=== PATIENT | female | born 1955 | race Caucasian/White ===

== ENCOUNTER 2018-03-17 15:46 | Inpatient (IN) | payer OTHER ==
[~2018-03-17 15:46] MED LIST: ISOVUE-370 76%-LOCM 1 ML ONE
--- NOTE | 2018-03-17 17:40 | RAD ---
CHEST ONE VIEW: 03/17/18 HISTORY: Pain COMPARISON: None. FINDINGS: Normal cardiac silhouette. Slightly diminished lung volumes due to poor inspiratory effort. No consol idation or mass. No pneumothorax or osseous abnormalities. IMPRESSION: No acute cardiopulmonary process. POS: DANGELO
[2018-03-17 17:43] LABS: Bilirubin Negative (Negative); Blood, Urine Negative (Negative); Glucose, Urine (Dipstick) >=1000 mg/dL (Negative); Leukocyte Trace (Negative); Nitrite Positive (Negative); Protein, Urine (Dipstick) Negative (Neg-Trace); Urobilinogen 0.2 mg/dL (0.2-1.0); pH, Urine 5.5 (5.0-9.0)
[2018-03-17 17:46] LABS: Clarity Clear (Clear)
[2018-03-17 17:49] LABS: Bacteria/HPF 3+ HPF (None Seen); Hyaline Casts/LPF 4-6 HYALINE CAST LPF (0-3 Hyaline); Pathc Cast-AUWi Flag 1.01 (0-2.49); RBC/HPF 0-3 HPF (0-3); Squamous Epithelial 0-3 HPF (0-3)
[2018-03-17 17:51] LABS: ALT (SGPT) 32 U/L (8-55); AST (SGOT) 26 U/L (5-34); Albumin 4.4 g/dL (3.4-4.8); Alkaline Phosphatase 97 U/L (40-150); Anion Gap 15 mmol/L (10-20); BUN (Urea Nitrogen) 12 mg/dL (9.8-20.1); Bilirubin, Total 0.4 mg/dL (0.2-1.2); Calc. Creatinine Clearance 0 mL/min (70-130); Calcium 10.4 mg/dL (7.8-10.44); Carbon Dioxide 21 mmol/L (23-31); Chloride 98 mmol/L (98-107); Estimated GFR-MDRD 69; Globulin 3.8 g/dL (2.4-3.5); Glucose 342 mg/dL (80-115); Magnesium 1.6 mg/dL (1.6-2.6); Potassium 4.3 mmol/L (3.5-5.1); Protein, Total 8.2 g/dL (6.0-8.3); Sodium 130 mmol/L (136-145)
[2018-03-17 17:55] LABS: CKMB 1.2 ng/mL (0-6.6)
[2018-03-17 17:58] LABS: Crystals/HPF None Seen HPF (Negative)
[2018-03-17 18:12] LABS: Troponin I Less than 0.010 ng/mL (< 0.028)
--- NOTE | 2018-03-17 19:39 | CT ---
CT ANGIOGRAM OF THE CHEST: 03/17/18 HISTORY: Chest pain. Evaluate for thrombus. COMPARISON: None. TECHNIQUE: CT angiogram of the chest is performed in the axial plane. Three dimensional reformatted images are s ubmitted for interpretation. FINDINGS: No mediastinal mass, lymphadenopathy or hematoma. Heart size is within normal limits. No significant pericardial fluid. The thoracic aorta and upper abdominal aorta demonstrate atherosclerosis. No peria ortic fat stranding. Coronary artery calcifications identified. Visualized solid organs are unremarkable. There is evidence of hepatomegaly. Dependent atelectatic change in the lung parenchyma. No consolidation or masses. No pleural effusion. No pneumothorax. Trachea and central bronchi are patent. No lytic or blastic lesions in the osseous structures. Adequate contrast opacification in the pulmonary arterial system to the level of the segm ental arteries. No filling defect to suggest thromboembolism. IMPRESSION: No evidence of pulmonary artery embolism to the level of the segmental arteries. POS: BASIM
[2018-03-17] MEDS ORDERED: Nicotine 21 MG PATCH TOP SCH (21:00)
--- NOTE | 2018-03-17 21:16 | ULT ---
LEFT UPPER EXTREMITY ARTERIAL ULTRASOUND WITH DOPPLER: 03/17/18 HISTORY: Cool left upper extremity. COMPARISON: None. TECHNIQUE: Finney scale, color flow, doppler imaging, with spectral waveform analysis performed in the left upper extremity arterial system. FINDINGS: There is monophasic flow in the left subclavian artery, left axillary artery, left brachial artery, l eft radial artery and left ulnar artery. IMPRESSION: Monophasic flow throughout the left upper extremity arterial system. POS: DANGELO
[2018-03-17 23:08] LABS: Troponin I Less than 0.010 ng/mL (< 0.028)
[2018-03-18 00:50] VITALS: BMI 33.1
[2018-03-18] MEDS ORDERED: Ondansetron ODT 4 MG TAB SL PRN (01:00)
[2018-03-18] MEDS ORDERED: Acetaminophen 325 MG TAB PO PRN ×2 (01:00→02:19)
[2018-03-18] MEDS ORDERED: Albuterol Sulfate 2.5 mg/3 ml Neb NEB PRN (01:00)
[2018-03-18] MEDS ORDERED: Ondansetron HCl/PF 4 MG/2 ML Vial IVP PRN ×2 (01:00→02:19)
--- NOTE | 2018-03-18 01:47 | HP ---
PRIMARY CARE PHYSICIAN: Imani Abbtot MD DATE OF SERVICE: 03/17/2018 This patient was seen in the emergency room before midnight. HISTORY OF PRESENT ILLNESS: A 62-year-old female who has ongoing tobacco abuse disorder; diabetes, t ype 2; hypertension; dyslipidemia, who had regular followup visit with primary care physician where p atient was found with hyperglycemia. The patient was feeling that she was not able to record blood p ressure reading at home through the left upper extremity and that is why she was worried about. Esmer ent's primary care physician advised her to go to the emergency room for evaluation. She was experie ncing intermittent chest discomfort associated with shortness of breath. The patient is a heavy smok er. Patient's is present at bedside who reports that she has underlying history of COPD, but she is not using a nebulizer treatment as much as needed. The patient denies any discoloration in t he left upper extremities. She denies any left upper extremity pain. Patient was experiencing incre asing shortness of breath, which she attributes to her COPD. She denies any polyuria, polydipsia. S he denies any weight loss. She denies any recent weight gain. She denies any calf tenderness. She denies any dizziness or syncope. She denies any fever or chills. She denies any UTI symptoms, thoug h urinalysis in the emergency room was consistent with UTI. She denies any fever. She was tachycard ic in the emergency room. In the emergency room, the patient had CT angiography which was negative for pulmonary embolism. She was saturating normal on room air. She had arterial Doppler in left upper extremity which was also unremarkable. The patient is being admitted to telemetry floor for further evaluation. ALLERGIES: No known drug allergy. CURRENT HOME MEDICATIONS: Cymbalta 100 mg p.o. daily, Crestor 10 mg p.o. at bedtime, lisinopril 10 m g p.o. daily, metformin 750 mg p.o. daily, trazodone 100 mg p.o. at bedtime. REVIEW OF SYSTEMS: Constitutional: Weight loss or gain, ability to conduct usual activities. Skin: Rash, itching. Eyes: Double vision, pain. ENT/Mouth: Nose bleeding, neck stiffness, pain, tende rness. Cardiovascular: Palpitations, dyspnea on exertion, orthopnea. Respiratory: Shortness of br eath, wheezing, cough, hemoptysis, fever or night sweats. Gastrointestinal: Poor appetite, abdomina l pain, heartburn, nausea, vomiting, constipation, or diarrhea. Genitourinary: Urgency, frequency, dysuria, nocturia. Musculoskeletal: Pain, swelling. Neurologic/Psychiatric: Anxiety, depression. Allergy/Immunologic: Skin rash, bleeding tendency. Please see my HPI for pertinent positive and ne gative. All other review of systems reviewed and negative except as mentioned in the HPI. PAST MEDICAL HISTORY: Diabetes type 2, hypertension, dyslipidemia, COPD, tobacco abuse disorder, his tory of skin cancer on back. PAST SURGICAL HISTORY: Right knee surgery, skin cancer on the back was removed, cholecystectomy, hys terectomy, right MCL repair. PAST PSYCHIATRIC HISTORY: Anxiety and depression. SOCIAL HISTORY: Patient is . She smokes about 1-1/2 pack per day. She denies any alcohol ab use. She denies any other illicit drug abuse. FAMILY HISTORY: No strong family history of premature coronary artery disease, stroke, or cancer. EMERGENCY ROOM COURSE: Patient is given nicotine patch, aspirin 324 mg, Rocephin 1 gram, nitroglycer in 0.4 mg sublingual and IV fluid 1 liter. PHYSICAL EXAMINATION: VITAL SIGNS: On arrival, blood pressure 110/60, pulse 125, respiratory rate 30, temperature 98.5, sa turation 90% on room air, weight 82.1 kilograms. GENERAL: Patient is currently alert, awake, in no obvious acute distress. HEAD: Normocephalic, atraumatic. EYES: Pupils round, reactive to light. Extraocular muscle intact. ENT: Oropharynx within normal limits. Moist mucous membrane. No oral lesion, no pharyngeal erythem a, no exudate. NECK: Supple. No JVD, no thyromegaly, no carotid bruit. LUNGS: Bilateral end expiratory wheezing heard. No rhonchi, no wheezing, no rales, no accessory mus cles of respiration in use. CARDIAC: S1, S2 regular, tachycardia. No murmur elicited, no gallop, no rub. ABDOMEN: Soft, bowel sounds present, nontender, nondistended. No organomegaly, no mass, no suprapub ic tenderness. BACK: Unremarkable. No CVA tenderness. EXTREMITIES: Upper extremity: Passive movement of all joints are normal. Lower extremities: No ed dariel. Good peripheral pulsation. Left upper extremity: Patient does have feeble radial pulsation. There is normal skin color and normal capillary filling on left upper extremity. SKIN: No skin rash. HEMATOLOGICAL: No lymphadenopathy. PSYCHIATRIC: Normal affect. SIGNIFICANT LABORATORY AND DIAGNOSTIC DATA: EKG showing sinus tachycardia, premature ventricular com plexes. Chest x-ray based on my review, no acute cardiopulmonary process. CT angiography negative f or pulmonary embolism. Upper extremity ultrasound was showing monophasic flow throughout the left up per extremity. BMP: Sodium 130, potassium 4.3, chloride 98, carbon dioxide 21, BUN 12, creatinine 0 .83, glucose 342, calcium 10.4, and magnesium 1.6. LFT: AST 26, ALT 32, alkaline phosphatase 97, al bumin 4.4. BNP 24.7. Cardiac enzymes negative x2. Urinalysis suggestive of urinary tract infection . ASSESSMENT AND PLAN: 1. Chest pain/dyspnea rule out acute coronary syndrome. At this point, the patient is tachycardic, relatively hypotensive and hypoxic. CT angio is negative for pulmonary embolism. The patient will b e given IV fluid and will perform pharmacological stress test tomorrow morning for diagnostic reason to rule out underlying coronary artery disease. As this patient has several risk factors for coronar y artery disease. 2. Hyponatremia. Patient will be given IV fluid. This sodium is may be pseudohyponatremia from hyp erglycemia. We will repeat BMP tomorrow. 3. Hyperglycemia associated with diabetes type 2. We will continue with insulin as per sliding scal e per protocol. Diabetic diet will be given. We will continue to hold metformin because of contrast given with a CT angio. We will check hemoglobin A1c. We will monitor Accu-Chek every 4 hourly. 4. Urinary tract infection. We will send urine culture and start Rocephin 1 gram q.24 hours. Upon discharge, we will consider changing to p.o. ciprofloxacin. 5. Tobacco abuse disorder. Smoking cessation counseling given. Healthy lifestyle measures discusse d with the patient. We will offer nicotine patch if needed. 6. Dyslipidemia. Check lipid profile tomorrow for a stratification and continue Crestor 10 mg p.o. at bedtime. 7. Hypertension. If blood pressure permits, then we will give her lisinopril 10 mg p.o. daily. 8. Anxiety and depression. Continue Cymbalta as per home dosage as well as trazodone as per her colt e dosage. 9. Obesity. Dietary education given, weight loss education given. 10. Chronic obstructive pulmonary disease with mild exacerbation. DuoNeb therapy will be given ever y 6 hourly. 11. Inability to record blood pressure to left arm as well as feeble pulse and left radial, etiology uncertain. Arterial Doppler is unremarkable. Patient does not have any signs of vascular insuffici ency clinically at this point. 12. Deep venous thrombosis prophylaxis not needed because we are expecting discharge in 24 hours. 13. Gastrointestinal prophylaxis, Pepcid 20 mg p.o. b.i.d. 14. Code status: The patient is FULL CODE. Patient's is surrogate decision maker. Disposition plan based on clinical course and above-mentioned investigation result.
[2018-03-18 01:54] LABS: Troponin I Less than 0.010 ng/mL (< 0.028)
[2018-03-18] MEDS ORDERED: Nitroglycerin 0.4 MG TAB (25 Tab Bottle) PO PRN (02:19)
[2018-03-18] MEDS ORDERED: Zolpidem Tartrate 5 MG TAB PO PRN (02:19)
[2018-03-18] MEDS ORDERED: HYDROcodone/Acetaminophen 5/325 mg Tablet PO PRN (02:19)
[2018-03-18] MEDS ORDERED: Dextrose 5% in Water 1,000 ML IV PRN (02:19)
[2018-03-18] MEDS ORDERED: Mag-Al 1200 mg/1200 mg/30 ML UDCUP PO PRN (02:19)
[2018-03-18] MEDS ORDERED: Dextrose 50% Abboject 50 ML SYRINGE SLOW IVP PRN (02:19)
[2018-03-18] MEDS ORDERED: Milk Of Magnesia 30 ML UDCUP PO PRN (02:19)
[2018-03-18] MEDS ORDERED: Ondansetron ODT 4 MG TAB PO PRN (02:19)
[2018-03-18] MEDS ORDERED: Senokot 8.6 MG TAB PO PRN (02:19)
[2018-03-18] MEDS: cefTRIAXone\\ROCEPHIN 1 GM in Sodium Chloride 0.9% 100 ML IVPB SCH (03:22)
[2018-03-18] MEDS: Sodium Chloride 0.9% 1,000 ML IV SCH ×2 (03:55→18:42)
[2018-03-18] MEDS: Nitroglycerin 2% Ointment 1 INCH/1 GM Packet TOP SCH ×3 (04:05→20:43)
[2018-03-18 05:02] LABS: #Basophils 0.1 thou/uL (0.0-0.2); #Eosinphils 0.2 thou/uL (0.0-0.7); #Lymphocytes 2.6 thou/uL (1.20-3.40); #Monocytes 0.5 thou/uL (0.11-0.59); #Neutrophils 5.7 thou/uL (1.40-6.50); %Basophils 0.6 % (0.0-1.0); %Eosinophils 2.2 % (0.0-10.0); %Lymphocytes 28.5 % (21.0-51.0); %Monocytes 5.8 % (0.0-10.0); %Neutrophils 62.9 % (42.0-75.0); Hemoglobin 14.3 g/dL (12.0-16.0); Mean Corpuscular HGB CONC 34.5 g/dL (32.0-36.0); Mean Corpuscular Hemoglobin 34.3 pg (27.0-31.0); Mean Corpuscular Volume 99.3 fl (81.0-99.0); Mean Platelet Volume 7.8 fL (7.4-10.4); Platelet Count 161 thou/uL (130-400); Red Blood Cell (RBC) Count 4.16 mill/uL (4.20-5.40); White Blood Cell (WBC) Count 9.1 thou/uL (4.8-10.8)
[2018-03-18 05:04] LABS: Hemoglobin A1c 8.4 % (4.0-6.0)
[2018-03-18 05:26] LABS: Anion Gap 14 mmol/L (10-20); BUN (Urea Nitrogen) 12 mg/dL (9.8-20.1); Calc. Creatinine Clearance 110 mL/min (70-130); Calcium 9.4 mg/dL (7.8-10.44); Carbon Dioxide 25 mmol/L (23-31); Cardiac Risk 6.1 (Less than 4.5); Chloride 101 mmol/L (98-107); Cholesterol 200 mg/dl (< 200 Desired); Estimated GFR-MDRD 87; Glucose 244 mg/dL (80-115); HDL Cholesterol 33 mg/dL (>60 Neg Risk); LDL Cholesterol, Calculated 107 mg/dL; Potassium 4.5 mmol/L (3.5-5.1); Sodium 135 mmol/L (136-145); Triglycerides 298 mg/dL (Less than 150)
[2018-03-18] MEDS: Lisinopril 10 MG TAB PO SCH (09:16)
[2018-03-18] MEDS: Famotidine 20 MG TAB PO SCH ×2 (09:16→20:41)
[2018-03-18] MEDS: Aspirin 325 MG TAB PO SCH (09:16)
[2018-03-18] MEDS: Nicotine 21 MG PATCH TD SCH (09:16)
--- NOTE | 2018-03-18 12:31 | PDOC.PN ---
- Subjective Encounter Start Date: 03/18/18 Encounter Start Time: 08:45 Subjective: no chest pain or palp - Objective Resuscitation Status: Resuscitation Status FULL:Full Resuscitation MAR Reviewed: Yes Vital Signs & Weight: Vital Signs (12 hours) Temp Pulse Resp BP BP Pulse Ox 03/18/18 09:16 135/82 03/18/18 07:59 97.9 F 110 H 12 135/82 94 L 03/18/18 07:50 97.9 F 110 H 12 03/18/18 06:49 90 14 03/18/18 03:17 97.8 F 105 H 24 H 148/70 H 91 L 03/18/18 00:47 98.2 F 109 H 20 150/70 H 94 L Weight Weight 181 lb 3.2 oz I&O: 03/17/18 03/18/18 03/19/18 06:59 06:59 06:59 Intake Total 664 Balance 664 Result Diagrams: 03/18/18 04:47 03/18/18 04:47 Additional Labs: Accuchecks 03/18/18 00:47 POC Glucose 186 H Phys Exam - Physical Examination HEENT: PERRLA, moist MMs Neck: no JVD, supple Respiratory: no wheezing, no rales rhonchi+ Cardiovascular: RRR, no significant murmur Gastrointestinal: soft, non-tender, positive bowel sounds Musculoskeletal: no edema, pulses present Neurological: non-focal, moves all 4 limbs Psychiatric: normal affect, A&O x 3 Dx/Plan (1) Chest pain Code(s): R07.9 - CHEST PAIN, UNSPECIFIED Status: Acute (2) UTI (urinary tract infection) Status: Acute Qualifiers: Urinary tract infection type: acute cystitis Hematuria presence: without hematuria Qualified Code(s): N30.00 - Acute cystitis without hematuria (3) HTN (hypertension) Code(s): I10 - ESSENTIAL (PRIMARY) HYPERTENSION Status: Chronic Qualifiers: Hypertension type: essential hypertension Qualified Code(s): I10 - Essential (primary) hypertension (4) Obesity (BMI 30.0-34.9) Code(s): E66.9 - OBESITY, UNSPECIFIED Status: Chronic (5) COPD (chronic obstructive pulmonary disease) Status: Chronic Qualifiers: COPD type: chronic bronchitis Chronic bronchitis type: unspecified Qualified Code(s): J42 - Unspecified chronic bronchitis (6) DM type 2 (diabetes mellitus, type 2) Status: Chronic Qualifiers: Diabetes mellitus oil heaterman insulin use: without senior living use Diabetes mellitus complication status: with unspecified complications Qualified Code(s) : E11.8 - Type 2 diabetes mellitus with unspecified complications (7) Tobacco abuse Code(s): Z72.0 - TOBACCO USE Status: Chronic - Plan await stress test results -: is on ceftriaxone for uti, will switch to levaquin for dc plan -: sod is 135 this am -: b/l UE neurovasc bundle is normal -: cta lung -ve, usg art doppler of left UE is normal * . on asp, crestor, lisinopril. Review of Systems - Medications/Allergies Allergies/Adverse Reactions: Allergies Allergy/AdvReac Type Severity Reaction Status Date / Time No Known Drug Allergies Allergy Verified 03/18/18 01:00 Medications: Current Medications Acetaminophen (Tylenol) 650 mg PO Q4H PRN PRN Reason: Headache/Fever or Pain Hydrocodone Bitart/Acetaminophen ([place] 5/325) 1 tab PO Q4H PRN PRN Reason: Moderate Pain (4-6) Al Hydroxide/Mg Hydroxide (Maalox) 30 ml PO Q6H PRN PRN Reason: Heartburn or Indigestion Albuterol/Ipratropium (Duoneb) 3 ml NEB [id number] [facility] Last Admin: 03/18/18 12:03 Dose: Not Given Aspirin (Aspirin) 325 mg PO DAILY [facility] Last Admin: 03/18/18 09:16 Dose: 325 mg Dextrose/Water (Dextrose 50%) 25 gm SLOW IVP PRN PRN PRN Reason: Hypoglycemia Duloxetine HCl (Cymbalta) 100 mg PO HS [facility] Famotidine (Pepcid) 20 mg PO BID [facility] Last Admin: 03/18/18 09:16 Dose: 20 mg Glucagon (Glucagon) 1 mg IM PRN PRN PRN Reason: Hypoglycemia Ceftriaxone Sodium 1 gm/ (Sodium Chloride) 100 mls @ 200 mls/hr IVPB Q24HR [facility] Last Admin: 03/18/18 03:22 Dose: 100 mls Dextrose/Water (D5w) 1,000 mls @ 0 mls/hr IV .Q0M PRN; As Directed PRN Reason: Hypoglycemia Sodium Chloride (Normal Saline 0.9%) 1,000 mls @ 75 mls/hr IV .[id number] [facility] Last Admin: 03/18/18 03:55 Dose: 1,000 mls Insulin Human Lispro (Humalog) 0 units SC .MODERATE SLIDING SC PRN PRN Reason: Moderate Correctional Scale Insulin Human Lispro (Humalog) 0 units SC .BEDTIME SLIDING SC PRN PRN Reason: Bedtime Correctional Scale Lisinopril (Zestril) 10 mg PO DAILY [facility] Last Admin: 03/18/18 09:16 Dose: 10 mg Loperamide HCl (Imodium) 2 mg PO PRN PRN PRN Reason: Diarrhea/Loose Stools Magnesium Hydroxide (Milk Of Magnesium) 30 ml PO DAILYPRN PRN PRN Reason: Constipation Nicotine (Nicoderm Patch) 21 mg TD Q24HR [facility] Last Admin: 03/18/18 09:16 Dose: Not Given Nitroglycerin (Nitro-Bid 2% Ointment) 0.5 inch TOP Q8HR [facility] Last Admin: 03/18/18 04:05 Dose: Not Given Nitroglycerin (Nitrostat) 0.4 mg PO Q5MIN PRN PRN Reason: Chest Pain Ondansetron HCl (Zofran Odt) 4 mg PO Q6H PRN PRN Reason: Nausea/Vomiting Ondansetron HCl (Zofran) 4 mg IVP Q6H PRN PRN Reason: Nausea/Vomiting Rosuvastatin Calcium (Crestor) 20 mg PO HS [facility] Senna (Senokot) 2 tab PO HSPRN PRN PRN Reason: Constipation Sodium Chloride (Flush - Normal Saline) 10 ml IVF Q12HR [facility] Last Admin: 03/18/18 09:16 Dose: 10 ml Sodium Chloride (Flush - Normal Saline) 10 ml IVF PRN PRN PRN Reason: Saline Flush Last Admin: 03/18/18 03:21 Dose: 10 ml Trazodone HCl (Desyrel) 100 mg PO HS [facility] Zolpidem Tartrate (Ambien) 5 mg PO HSPRN PRN PRN Reason: Insomnia
[2018-03-18] MEDS: Loperamide HCl 2 MG CAP PO PRN ×2 (12:44→17:24)
[2018-03-18] MEDS: HumaLOG 300 UNITS/3 ML VIAL SC PRN ×3 (13:18→21:36)
[2018-03-18] MEDS ORDERED: Regadenoson 0.4 MG/5 ML SYRINGE ONE (14:13)
[2018-03-18] MEDS: DULoxetine 60 MG CAP PO SCH (20:41)
[2018-03-18] MEDS: Rosuvastatin 20 MG TAB PO SCH (20:41)
[2018-03-18] MEDS: traZODone HCl 50 MG TAB PO SCH (20:42)
[2018-03-19] MEDS: Nitroglycerin 2% Ointment 1 INCH/1 GM Packet TOP SCH (01:22)
[2018-03-19] MEDS: HumaLOG 300 UNITS/3 ML VIAL SC PRN ×4 (03:46→23:56)
[2018-03-19] MEDS: cefTRIAXone\\ROCEPHIN 1 GM in Sodium Chloride 0.9% 100 ML IVPB SCH (03:46)
[2018-03-19] MEDS: Sodium Chloride 0.9% 1,000 ML IV SCH (03:46)
[2018-03-19] MEDS ORDERED: Insulin Glargine 20 UNITS in Pre-Filled Syringe 1 EACH SC SCH (07:48)
[2018-03-19] MEDS: Lisinopril 10 MG TAB PO SCH (10:11)
[2018-03-19] MEDS: Aspirin 325 MG TAB PO SCH (10:12)
[2018-03-19] MEDS: Famotidine 20 MG TAB PO SCH ×2 (10:12→21:32)
[2018-03-19] MEDS: Nicotine 21 MG PATCH TD SCH (10:12)
--- NOTE | 2018-03-19 10:55 | NM ---
NUCLEAR MEDICINE CARDIAC STRESS TEST WITH EJECTION FRACTION: HISTORY: Chest pain. COMPARISON: None. TECHNIQUE: Nuclear medicine cardiac stress was performed after the intravenous administration of 30.9 and 32 mCi Technetium 99m sestamibi for stress and rest. FINDINGS: There is a scar in the inferior and lateral wall of the left ventricle. There is also a small focus of ischemia along the scar along the lateral wall. The wall motion is normal. Calculated ejection fraction is 70%. IMPRESSION: Inferolateral wall of the mid portion to the apex of the left ventricle with small volume periinfarct ischemia. POS: DANGELO
--- NOTE | 2018-03-19 11:15 | PDOC.PN ---
- Subjective Encounter Start Date: 03/19/18 Encounter Start Time: 10:50 Subjective: no sob, feels better - Objective Resuscitation Status: Resuscitation Status FULL:Full Resuscitation MAR Reviewed: Yes Vital Signs & Weight: Vital Signs (12 hours) Temp Pulse Resp BP Pulse Ox 03/19/18 10:11 176/79 H 03/19/18 07:45 98.5 F 93 18 03/19/18 07:39 93 18 95 03/19/18 03:41 98.5 F 86 20 176/79 H 97 03/19/18 00:07 84 16 Weight Weight 181 lb I&O: 03/18/18 03/19/18 03/20/18 06:59 06:59 06:59 Intake Total 664 2312 240 Balance 664 2312 240 Result Diagrams: 03/18/18 04:47 03/18/18 04:47 Additional Labs: Accuchecks 03/19/18 03/19/18 03/19/18 10:23 06:18 00:49 POC Glucose 265 H 185 H 286 H 03/18/18 03/18/18 03/18/18 20:25 16:33 12:53 POC Glucose 315 H 284 H 287 H Phys Exam - Physical Examination HEENT: PERRLA, moist MMs Neck: no JVD, supple Respiratory: no wheezing, no rales Cardiovascular: RRR, no significant murmur Gastrointestinal: soft, non-tender, positive bowel sounds Musculoskeletal: no edema, pulses present Neurological: non-focal, moves all 4 limbs Psychiatric: normal affect, A&O x 3 Dx/Plan (1) Chest pain Code(s): R07.9 - CHEST PAIN, UNSPECIFIED Status: Acute (2) UTI (urinary tract infection) Status: Acute Qualifiers: Urinary tract infection type: acute cystitis Hematuria presence: without hematuria Qualified Code(s): N30.00 - Acute cystitis without hematuria (3) HTN (hypertension) Code(s): I10 - ESSENTIAL (PRIMARY) HYPERTENSION Status: Chronic Qualifiers: Hypertension type: essential hypertension Qualified Code(s): I10 - Essential (primary) hypertension (4) Obesity (BMI 30.0-34.9) Code(s): E66.9 - OBESITY, UNSPECIFIED Status: Chronic (5) COPD (chronic obstructive pulmonary disease) Status: Chronic Qualifiers: COPD type: chronic bronchitis Chronic bronchitis type: unspecified Qualified Code(s): J42 - Unspecified chronic bronchitis (6) DM type 2 (diabetes mellitus, type 2) Status: Chronic Qualifiers: Diabetes mellitus intermediate school teacher insulin use: without intermediate school teacher use Diabetes mellitus complication status: with unspecified complications Qualified Code(s) : E11.8 - Type 2 diabetes mellitus with unspecified complications (7) Tobacco abuse Code(s): Z72.0 - TOBACCO USE Status: Chronic - Plan inferolat scar with aria infarct isch on stress test, ekg has q waves inf l -: await urine cs, prelim has e.coli -: one dose lantus 20u now, to start metformin if cleared by cardio -: cardio consultation, keep pt npo -: on asp, crestor, lisinopril. Will order echo * . Review of Systems - Medications/Allergies Allergies/Adverse Reactions: Allergies Allergy/AdvReac Type Severity Reaction Status Date / Time No Known Drug Allergies Allergy Verified 03/18/18 01:00 Medications: Current Medications Acetaminophen (Tylenol) 650 mg PO Q4H PRN PRN Reason: Headache/Fever or Pain Hydrocodone Bitart/Acetaminophen ([place] 5/325) 1 tab PO Q4H PRN PRN Reason: Moderate Pain (4-6) Al Hydroxide/Mg Hydroxide (Maalox) 30 ml PO Q6H PRN PRN Reason: Heartburn or Indigestion Albuterol/Ipratropium (Duoneb) 3 ml NEB [id number] [facility] Last Admin: 03/19/18 07:39 Dose: 3 ml Aspirin (Aspirin) 325 mg PO DAILY [facility] Last Admin: 03/19/18 10:12 Dose: 325 mg Dextrose/Water (Dextrose 50%) 25 gm SLOW IVP PRN PRN PRN Reason: Hypoglycemia Duloxetine HCl (Cymbalta) 100 mg PO HS [facility] Last Admin: 03/18/18 20:41 Dose: 100 mg Famotidine (Pepcid) 20 mg PO BID [facility] Last Admin: 03/19/18 10:12 Dose: 20 mg Glucagon (Glucagon) 1 mg IM PRN PRN PRN Reason: Hypoglycemia Ceftriaxone Sodium 1 gm/ (Sodium Chloride) 100 mls @ 200 mls/hr IVPB Q24HR [facility] Last Admin: 03/19/18 03:46 Dose: 100 mls Dextrose/Water (D5w) 1,000 mls @ 0 mls/hr IV .Q0M PRN; As Directed PRN Reason: Hypoglycemia Insulin Human Lispro (Humalog) 0 units SC .MODERATE SLIDING SC PRN PRN Reason: Moderate Correctional Scale Last Admin: 03/19/18 06:21 Dose: 2 unit Insulin Human Lispro (Humalog) 0 units SC .BEDTIME SLIDING SC PRN PRN Reason: Bedtime Correctional Scale Lisinopril (Zestril) 10 mg PO DAILY [facility] Last Admin: 03/19/18 10:11 Dose: 10 mg Loperamide HCl (Imodium) 2 mg PO PRN PRN PRN Reason: Diarrhea/Loose Stools Last Admin: 03/18/18 17:24 Dose: 2 mg Magnesium Hydroxide (Milk Of Magnesium) 30 ml PO DAILYPRN PRN PRN Reason: Constipation Nicotine (Nicoderm Patch) 21 mg TD Q24HR [facility] Last Admin: 03/19/18 10:12 Dose: Not Given Nitroglycerin (Nitrostat) 0.4 mg PO Q5MIN PRN PRN Reason: Chest Pain Ondansetron HCl (Zofran Odt) 4 mg PO Q6H PRN PRN Reason: Nausea/Vomiting Ondansetron HCl (Zofran) 4 mg IVP Q6H PRN PRN Reason: Nausea/Vomiting Rosuvastatin Calcium (Crestor) 20 mg PO [facility] Last Admin: 03/18/18 20:41 Dose: 20 mg Senna (Senokot) 2 tab PO HSPRN PRN PRN Reason: Constipation Sodium Chloride (Flush - Normal Saline) 10 ml IVF Q12HR [facility] Last Admin: 03/19/18 10:12 Dose: 10 ml Sodium Chloride (Flush - Normal Saline) 10 ml IVF PRN PRN PRN Reason: Saline Flush Last Admin: 03/18/18 03:21 Dose: 10 ml Trazodone HCl (Desyrel) 100 mg PO [facility] Last Admin: 03/18/18 20:42 Dose: 100 mg Zolpidem Tartrate (Ambien) 5 mg PO HSPRN PRN PRN Reason: Insomnia
--- NOTE | 2018-03-19 16:30 | CON ---
DATE OF CONSULTATION: 03/19/2018 DATE OF ADMISSION: 03/18/2018 INDICATION FOR CONSULTATION: A 62-year-old female with abnormal stress test. HISTORY OF PRESENT ILLNESS: This is a very pleasant 62-year-old female who has a long history of tobacco abuse, diabetes, hypertension, hypercholesterolemia, presented to her primary care physician's office. They could not find a blood pressure in the left arm and also her blood sugar was significant elevated and she was advised to go to the emergency room. When seen in the emergency room, she was advised to be admitted to the hospital. Since being in the hospital, she underwent a stress test, which showed inferior lateral wall, a small area of the scar with aria-infarct ischemia with ejection fraction was 70%. The echocardiogram is still pending. She did not have any symptoms; however, she has multiple risk factors for coronary artery disease. She uses the oxygen as needed, but she continues to smoke 1-1/2 packs per day, which she has done for 50 years. At this time, she is still having no chest discomfort and EKG does not show any significant changes. Her cardiac enzymes were unremarkable. PAST MEDICAL HISTORY: Significant for type 2 diabetes, hypertension, hypercholesterolemia, mainly hypertriglyceridemia, tobacco abuse, COPD, skin cancer removals, anxiety and depression. She has had right knee surgery with a right medial collateral ligament repair. She had a cholecystectomy and hysterectomy. SOCIAL HISTORY: She is . She has 2 children who are alive and well. She smokes 1-1/2 packs per day. She has no alcohol use. FAMILY HISTORY: Noncontributory. ALLERGIES: None. MEDICATIONS: Please refer to the list of her medications. At home, she was taking metformin. She did have a problem at one point in time with the blood sugar being too low and this was then decreased down to 750 mg a day. She also takes Cymbalta, Crestor, lisinopril and trazodone. REVIEW OF SYSTEMS: A 12-point review of systems is relatively unremarkable. She has been doing relatively well except for some coughing and shortness of breath. She is unable to do very much walking due to the shortness of breath. Otherwise, the review of systems is unremarkable. PHYSICAL EXAMINATION: GENERAL: Reveals a middle-aged female. VITAL SIGNS: Blood pressure 150/70, heart rate is in the 90s-100s and shows a sinus rhythm. She is afebrile, respiratory rate is 18. HEENT: Shows head to be normocephalic and atraumatic. Carotid pulses are present. I cannot hear any bruits. CHEST: Has diffuse expiratory wheezing and coarse rhonchi noted throughout. CARDIOVASCULAR: Reveals a regular rate and rhythm. I cannot hear any significant murmurs. There were no significant heaves or thrills. Difficult to auscultate, however, very clearly due to the severe COPD and the airway noise. ABDOMEN: Soft and nontender. It is obese. Positive bowel sounds are present. I did not elicit any tenderness or masses. EXTREMITIES: Femoral pulses are very difficult to palpate, but I could hear bilateral femoral bruits. I cannot palpate popliteal or pedal pulses. There is no edema. The extremities are warm. NEUROLOGIC: She appears to be fully intact. LABORATORY DATA: Her EKG shows a normal sinus rhythm. No acute changes. She does have sinus tachycardia. Chest x-ray also showed no acute changes. IMPRESSION: 1. Probable underlying coronary artery disease with abnormal stress test in a female with multiple medical problems and multiple risk factors of coronary artery disease. I would advise her to undergo a cardiac catheterization as a tool to rule out evidence of underlying coronary artery disease. 2. Diabetes. This has actually been poorly controlled. This will need to be further adjusted by the primary care physician. 3. What appears to be a urinary tract infection. She does not appear to be septic; however, we will treat the urinary tract infection. 4. History of hypertension. This is also slightly elevated today. 5. Obesity. 6. Tobacco abuse, which she continues. I have strongly encouraged her to stop smoking and given her the indications and reasons for which she should stop smoking. 7. Chronic obstructive pulmonary disease, which will be dealt with by the primary care service. At this time, I have explained to her the needs to undergo a cardiac catheterization. I have explained the procedure and the risks to her to include bleeding, infection, possibly of myocardial infarction, cerebrovascular accident, renal insufficiency, allergic contrast reaction and even the possibility of . She understands and agrees to proceed. We will plan for a cardiac catheterization tomorrow morning. LAVINIA
[2018-03-19] MEDS: DULoxetine 60 MG CAP PO SCH (21:32)
[2018-03-19] MEDS: Rosuvastatin 20 MG TAB PO SCH (21:32)
[2018-03-19] MEDS: traZODone HCl 50 MG TAB PO SCH (21:33)
[2018-03-20] MEDS: cefTRIAXone\\ROCEPHIN 1 GM in Sodium Chloride 0.9% 100 ML IVPB SCH (04:03)
[2018-03-20] MEDS: Lisinopril 10 MG TAB PO SCH (05:32)
[2018-03-20] MEDS: Famotidine 20 MG TAB PO SCH ×2 (05:33→20:41)
[2018-03-20] MEDS: Aspirin 325 MG TAB PO SCH (05:33)
[2018-03-20] MEDS ORDERED: Lidocaine 1% (PF) 30 ML VIAL ONE (06:40)
[2018-03-20] MEDS ORDERED: Nitroglycerin 100MG/250ML BOT 250 ML ONE (06:40)
[2018-03-20] MEDS ORDERED: Verapamil 5 MG/2 ML VIAL ONE (06:41)
[2018-03-20] MEDS ORDERED: Heparin 10,000 UNITS/1 ML VIAL ONE (06:41)
[2018-03-20] MEDS ORDERED: Nitroglycerin 0.4 MG TAB (25 Tab Bottle) SL PRN (08:27)
[2018-03-20] MEDS ORDERED: Sodium Chloride 0.9% 200 ML IV PRN (08:27)
[2018-03-20] MEDS ORDERED: traMADol HCl 50 MG TAB PO PRN (08:27)
[2018-03-20] MEDS ORDERED: Acetaminophen/Codeine 30-300mg Tablet PO PRN ×2 (08:27)
[2018-03-20] MEDS: Nicotine 21 MG PATCH TD SCH (09:45)
--- NOTE | 2018-03-20 10:16 | PDOC.PN ---
- Subjective Encounter Start Date: 03/20/18 Encounter Start Time: 10:00 Subjective: pt in room after right radial cath -: no chest pain or sob now - Objective MAR Reviewed: Yes Result Diagrams: 03/18/18 04:47 03/18/18 04:47 Phys Exam - Physical Examination HEENT: PERRLA, moist MMs Neck: no JVD, supple Respiratory: no wheezing, no rales rhonchi+ Cardiovascular: RRR, no significant murmur Gastrointestinal: soft, no distention, positive bowel sounds Musculoskeletal: no edema, pulses present Neurological: non-focal, moves all 4 limbs Psychiatric: normal affect, A&O x 3 Dx/Plan (1) CAD (coronary artery disease) Code(s): I25.10 - ATHSCL HEART DISEASE OF [place] CORONARY ARTERY W/O ANG PCTRS Status: Acute Comment: will need cabg (2) Chest pain Code(s): R07.9 - CHEST PAIN, UNSPECIFIED Status: Acute Qualifiers: Chest pain type: chest pain due to myocardial ischemia (3) UTI (urinary tract infection) Status: Acute Qualifiers: Urinary tract infection type: acute cystitis Hematuria presence: without hematuria Qualified Code(s): N30.00 - Acute cystitis without hematuria (4) HTN (hypertension) Code(s): I10 - ESSENTIAL (PRIMARY) HYPERTENSION Status: Chronic Qualifiers: Hypertension type: essential hypertension Qualified Code(s): I10 - Essential (primary) hypertension (5) Obesity (BMI 30.0-34.9) Code(s): E66.9 - OBESITY, UNSPECIFIED Status: Chronic (6) COPD (chronic obstructive pulmonary disease) Status: Chronic Qualifiers: COPD type: chronic bronchitis Chronic bronchitis type: unspecified Qualified Code(s): J42 - Unspecified chronic bronchitis (7) DM type 2 (diabetes mellitus, type 2) Status: Chronic Qualifiers: Diabetes mellitus fpc insulin use: without fpc use Diabetes mellitus complication status: with unspecified complications Qualified Code(s) : E11.8 - Type 2 diabetes mellitus with unspecified complications (8) Tobacco abuse Code(s): Z72.0 - TOBACCO USE Status: Chronic - Plan had cath this am, will need cabg -: i.spirometry, she will stop smoking from today, nebs -: is on asp, crestor and lisinopril -: someone has discontinued her lantus 20u bid, suggest place her back on it -: cipro bid for uti * . Review of Systems - Medications/Allergies Allergies/Adverse Reactions: Allergies Allergy/AdvReac Type Severity Reaction Status Date / Time No Known Drug Allergies Allergy Verified 03/18/18 01:00 Medications: Current Medications Acetaminophen (Tylenol) 650 mg PO Q4H PRN PRN Reason: Headache/Fever or Pain Acetaminophen/Codeine Phosphate (Tylenol #3) 1 tab PO Q4H PRN PRN Reason: Mild Pain (1-3) Acetaminophen/Codeine Phosphate (Tylenol #3) 2 tab PO Q4H PRN PRN Reason: Moderate Pain (4-6) Hydrocodone Bitart/Acetaminophen (Dellroy 5/325) 1 tab PO Q4H PRN PRN Reason: Moderate Pain (4-6) Al Hydroxide/Mg Hydroxide (Maalox) 30 ml PO Q6H PRN PRN Reason: Heartburn or Indigestion Albuterol/Ipratropium (Duoneb) 3 ml NEB [id number] [facility] Last Admin: 03/20/18 01:36 Dose: 3 ml Aspirin (Aspirin) 325 mg PO DAILY [facility] Last Admin: 03/20/18 05:33 Dose: 325 mg Ciprofloxacin (Cipro) 500 mg PO 0600,1999 [facility] Dextrose/Water (Dextrose 50%) 25 gm SLOW IVP PRN PRN PRN Reason: Hypoglycemia Duloxetine HCl (Cymbalta) 100 mg PO HS [facility] Last Admin: 03/19/18 21:32 Dose: 100 mg Famotidine (Pepcid) 20 mg PO BID [facility] Last Admin: 03/20/18 05:33 Dose: 20 mg Glucagon (Glucagon) 1 mg IM PRN PRN PRN Reason: Hypoglycemia Dextrose/Water (D5w) 1,000 mls @ 0 mls/hr IV .Q0M PRN; As Directed PRN Reason: Hypoglycemia Sodium Chloride (Normal Saline 0.9%) 200 mls @ 0 mls/hr IV ONE PRN; As Directed PRN Reason: Bolus PRN SBP < 90 mm Hg Stop: 03/23/18 08:28 Insulin Human Lispro (Humalog) 0 units SC .MODERATE SLIDING SC PRN PRN Reason: Moderate Correctional Scale Last Admin: 03/19/18 23:56 Dose: 4 unit Insulin Human Lispro (Humalog) 0 units SC .BEDTIME SLIDING SC PRN PRN Reason: Bedtime Correctional Scale Lisinopril (Zestril) 10 mg PO DAILY [facility] Last Admin: 03/20/18 05:32 Dose: 10 mg Loperamide HCl (Imodium) 2 mg PO PRN PRN PRN Reason: Diarrhea/Loose Stools Last Admin: 03/18/18 17:24 Dose: 2 mg Magnesium Hydroxide (Milk Of Magnesium) 30 ml PO DAILYPRN PRN PRN Reason: Constipation Miscellaneous Information (Communication Order-Pharmacy) 0 each FS ONE [facility] Stop: 03/20/18 15:01 Nicotine (Nicoderm Patch) 21 mg TD Q24HR [facility] Last Admin: 03/20/18 09:45 Dose: 21 mg Nitroglycerin (Nitrostat) 0.4 mg PO Q5MIN PRN PRN Reason: Chest Pain Nitroglycerin (Nitrostat) 0.4 mg SL Q5MIN PRN PRN Reason: Chest Pain Ondansetron HCl (Zofran Odt) 4 mg PO Q6H PRN PRN Reason: Nausea/Vomiting Ondansetron HCl (Zofran) 4 mg IVP Q6H PRN PRN Reason: Nausea/Vomiting Rosuvastatin Calcium (Crestor) 20 mg PO [facility] Last Admin: 03/19/18 21:32 Dose: 20 mg Senna (Senokot) 2 tab PO HSPRN PRN PRN Reason: Constipation Sodium Chloride (Flush - Normal Saline) 10 ml IVF Q12HR [facility] Last Admin: 03/20/18 09:44 Dose: 10 ml Sodium Chloride (Flush - Normal Saline) 10 ml IVF PRN PRN PRN Reason: Saline Flush Last Admin: 03/18/18 03:21 Dose: 10 ml Tramadol HCl (Ultram) 50 mg PO Q6H PRN PRN Reason: Moderate Pain (4-6) Trazodone HCl (Desyrel) 100 mg PO [facility] Last Admin: 03/19/18 21:33 Dose: 100 mg Zolpidem Tartrate (Ambien) 5 mg PO HSPRN PRN PRN Reason: Insomnia
--- NOTE | 2018-03-20 10:56 | CON ---
DATE OF CONSULTATION: 03/20/2018 REASON FOR CONSULTATION: COPD, tobacco abuse. HISTORY OF PRESENT ILLNESS: The patient is a 62-year-old female who is smoking 3 packs a day for most of her life, who has bronchitis, COPD, previous pneumonia with no history of TB or asthma. She presented with a left upper extremity loss of pulse , loss of pulse per her primary care physician. She had similar symptoms in the past. Since admission. Extensive workup has been done. 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 Presently disabled. On most days, she can barely walk even half a block without getting markedly short of breath. PAST MEDICAL HISTORY: Pertinent for COPD, arthritis, diabetes, hyperlipidemia, high cholesterol. PAST SURGICAL HISTORY: Cancer on the back surgery, history of gallbladder, hysterectomy. MEDICATIONS FROM HOME: Includes trazodone 100, metformin 750, Crestor 20, lisinopril 10, Cymbalta 100. SOCIAL HISTORY: As noted, she is presently disabled. FAMILY HISTORY: Unremarkable. ALCOHOL: None. TOBACCO: Tobacco as noted. REVIEW OF SYSTEMS: Otherwise, 10 point negative. PHYSICAL EXAMINATION: VITAL SIGNS: Sats are 92% on 2 liters, temperature is 98, pulse 99, blood pressure is 129/73. CHEST: Reveals decreased breath sounds without any wheezing. CARDIAC: Normal S1, S2, no gallops. ABDOMEN: Soft, without any masses. LABORATORY AND X-RAY FINDINGS: Chest x-ray shows hyperinflation, no acute infiltrates. Her lab otherwise shows normal electrolytes. Blood sugar is 286. Cholesterol was 200. White count 9000, H&H 14 and 43, platelet count is normal. IMPRESSION: 1. Status post cardiac catheterization. 2. Abnormal stress test. 3. Coronary artery disease. 4. Tobacco abuse. 5. Normal ejection fraction. 6. Diabetes. 7. Depression. 8. Urinary tract infection. PLAN: A full PFT is being ordered at this stage. She had a CT done of her chest and an ultrasound of the upper extremity. Both were unremarkable. At this stage, I have started neb treatments. She is to refrain from smoking. Obviously, PFTs are ordered. Further recommendation after above. MTDD
[2018-03-20] MEDS: HumaLOG 300 UNITS/3 ML VIAL SC PRN ×3 (11:37→20:59)
[2018-03-20] MEDS ORDERED: Lorazepam 2 MG/ML VIAL SLOW IVP SCH (12:45)
[2018-03-20] MEDS ORDERED: Iopamidol 370 76% 100 ML VIAL ONE (15:54)
[2018-03-20] MEDS ORDERED: Communication Order-Pharmacy FS SCH (16:55)
[2018-03-20] MEDS: Rosuvastatin 20 MG TAB PO SCH (20:41)
[2018-03-20] MEDS: traZODone HCl 50 MG TAB PO SCH (20:41)
[2018-03-20] MEDS: Ciprofloxacin 500 MG TAB PO SCH (20:42)
[2018-03-20] MEDS: DULoxetine 60 MG CAP PO SCH (20:58)
--- NOTE | 2018-03-21 02:40 | CON ---
DATE OF CONSULTATION: 03/20/2018 REQUESTING PHYSICIAN: Dr. Gonzalez. PRIMARY CARE PHYSICIAN: Dr. Imani Abbott in [place]. CHIEF COMPLAINT: Chest heaviness. HISTORY OF PRESENT ILLNESS: The patient is a 62-year-old diabetic smoker at a regular checkup with [facility] primary care physician, she was noted to have markedly elevated blood sugars as well as significan t disparity in measured blood pressures between her 2 arms. She was referred to the hospital and dur ing the course of her evaluation, she denied any acute or chronic ischemic symptoms in her left upper extremity, but she did report 2 recent episodes of chest pressure or heaviness awakening her from [facility]. She is only able to walk about a half a block before getting quite short of breath, but she has had trouble with her breathing for about 20 years and carries a diagnosis of COPD. She continues to actively smoke with estimates ranging from 1-1/2 to 3 packs of cigarettes a day depending upon exami ner. On further questioning, however, she has noticed over the last year or so a decrease in her exe rcise tolerance, getting more tired than normal, not just simply getting short of breath when she wal ks. PAST MEDICAL AND SURGICAL HISTORY: Significant for hypertension, diabetes, hyperlipidemia, COPD. Davian hooper has had a recent excision of a basal-cell carcinoma on her back. She has undergone surgery on her right knee. Cholecystectomy and hysterectomy. She has had history of anxiety and depression. HOME MEDICATIONS: Metformin 750 mg a day, lisinopril 10 mg a day, Crestor 20 mg at bedtime, Cymbalta 100 mg at bedtime, and trazodone 100 mg at bedtime. Currently, the metformin has been replaced with a sliding scale insulin, aspirin, Cipro 500 mg b.i.d., Pepcid and Nicoderm 21 mg patch have been add ed to her regimen. ALLERGIES: She denies any medical allergies. SOCIAL HISTORY: She is a lifelong smoker. She denies alcohol consumption. FAMILY HISTORY: Negative for any premature coronary artery disease. REVIEW OF SYSTEMS: She denies any transient eye, speech, facial, or extremity symptoms to suggest TI As. Denies upper extremity claudication. Denies any hip, buttock, thigh, or calf cramping consisten t with claudication. She does report some pain wrapping around her left hip and lateral thigh that s he refers to as sciatica. PHYSICAL EXAMINATION: GENERAL: She looks older than her stated age. VITAL SIGNS: Height 5 feet and 2 inches, weight 181-1/4 pounds, heart rate is 103, blood pressure 11 4/80, temperature is 98.6. She has 95% saturation on 2 liters nasal cannula. She has no xanthelasma . NECK: No JVD, no carotid bruits. LUNGS: Diffuse wheezes. CARDIAC: Regular rate and rhythm without murmur or gallop. ABDOMEN: Obese, soft, nontender, without bruits. EXTREMITIES: She has a palpable right radial pulse, but not left radial pulse. I am not able to tao reciate femoral pulses. There are no femoral bruits. She has faintly palpable dorsalis pedis pulses . She has what appears to be a very thin skin. She has no obvious varicosities. No clubbing, cyano sis, or edema. LABORATORY AND DIAGNOSTIC DATA: Her chest x-ray is fairly unremarkable. CT scan of the chest showed no evidence of pulmonary embolism, showed extensive calcification in the aortic arch with occlusion of the left subclavian, she had no obvious calcification in the ascending aorta. She did not have ov ert emphysematous changes in her lung martinez. Laboratory exam showed a white count of 9.1, hemoglobi n 14.3, hematocrit 41.3, platelets 161,000. Electrolytes were normal. Initial glucose was 342, BUN was 12, creatinine 0.83. LFTs are normal. Calcium 10.4, protein 8.2, albumin 4.4, magnesium 1.6. T roponins were all undetectable. Fasting lipids: Triglycerides 298, cholesterol 200, LDL 107, HDL 33 . Hemoglobin A1c was 8.4. Stress testing showed fixed defects in the inferior and lateral wall with aria-infarct ischemia laterally with normal wall motion and an EF of 70%, echocardiography, estimate d EF at 60-65%. A cardiac catheterization demonstrated a right dominant system with an ostial left m ain lesion that I estimate at 70%, while some of the views suggest a high diagonal. The craniocaudal view suggests a ramus intermedius in fairly good size that has a significant lesion in it. There ap pears to be modest distal left main lesion overlapping the origin of the circumflex. The right coron blessing is occluded with the PDA filling left to right. LVEF by my estimation is 70%. LVEDP was 7 with LV pressure being and aortic pressure 135/68 for a mean of 99. IMPRESSION AND RECOMMENDATIONS: Peripheral vascular disease affecting both upper and lower extremiti es, significant chronic obstructive pulmonary disease. When I asked her to blow out hard against my hand; however, she was able to move significant amount of air, although she did have a coughing fit a fterwards and was wheezing. My bedside estimate is that at least spirometrically, her lungs seem bet ter than I would expect. If that is enough to explain her dyspnea on exertion, I suspect that her de creasing exercise tolerance and her marked dyspnea on exertion are probably anginal equivalents relat ed to her significant left main disease. While left mammary is not going to be feasible becaus e of her subclavian artery disease, I think that surgical revascularization is feasible and though at higher than normal risk because of her comorbidities, most notably her lung disease, peripheral vasc ular disease, and diabetes that is not such high risk as to make it inadvisable and resigned her to t he grim prognosis associated with medical management or to refer her for left main stenting. I have discussed this with her and her and we will plan on coronary artery bypass grafting at the co xt selective opening on the schedule.
[2018-03-21] MEDS: Ciprofloxacin 500 MG TAB PO SCH ×2 (05:26→20:47)
[2018-03-21] MEDS: ALPRAZolam 0.25 MG TAB PO SCH ×3 (08:59→20:48)
[2018-03-21] MEDS: Famotidine 20 MG TAB PO SCH ×2 (09:00→20:48)
[2018-03-21] MEDS: Lisinopril 10 MG TAB PO SCH (09:00)
[2018-03-21] MEDS: Insulin Glargine 15 UNITS in Pre-Filled Syringe 1 EACH SC SCH ×2 (09:00→20:47)
[2018-03-21] MEDS: Aspirin 325 MG TAB PO SCH (09:00)
--- NOTE | 2018-03-21 10:48 | PDOC.PN ---
- Subjective Encounter Start Date: 03/21/18 Encounter Start Time: 09:30 Subjective: no chest pain or palp -: no sob, is amb in room -: at bedside - Objective MAR Reviewed: Yes Vital Signs & Weight: Vital Signs (12 hours) Temp Pulse Resp BP BP Pulse Ox 03/21/18 09:00 132/78 03/21/18 08:47 114 H 16 03/21/18 07:29 98.1 F 102 H 20 126/80 88 L 03/21/18 04:00 98.2 F 106 H 18 132/73 93 L 03/21/18 03:05 93 L 03/21/18 00:32 98 16 03/20/18 23:48 98.2 F 104 H 17 140/73 92 L Weight Weight 189 lb 4.8 oz I&O: 03/20/18 03/21/18 03/22/18 06:59 06:59 06:59 Intake Total 580 Output Total 720 Balance -140 Result Diagrams: 03/18/18 04:47 03/18/18 04:47 Additional Labs: Accuchecks 03/21/18 03/20/18 03/20/18 05:58 20:51 16:44 POC Glucose 244 H 273 H 238 H 03/20/18 11:00 POC Glucose 250 H Phys Exam - Physical Examination HEENT: PERRLA, moist MMs Neck: no JVD, supple Respiratory: no wheezing, no rales rhonchi+ Cardiovascular: RRR, no significant murmur Gastrointestinal: soft, non-tender, positive bowel sounds Musculoskeletal: no edema, pulses present Neurological: non-focal, moves all 4 limbs Psychiatric: A&O x 3 Dx/Plan (1) CAD (coronary artery disease) Code(s): I25.10 - ATHSCL HEART DISEASE OF [place] CORONARY ARTERY W/O ANG PCTRS Status: Acute Qualifiers: Coronary Disease-Associated Artery/Lesion type: [place] artery [place] vs. transplanted heart: [place] heart Comment: cabg on friday (2) Chest pain Code(s): R07.9 - CHEST PAIN, UNSPECIFIED Status: Acute Qualifiers: Chest pain type: chest pain due to myocardial ischemia (3) UTI (urinary tract infection) Status: Acute Qualifiers: Urinary tract infection type: acute cystitis Hematuria presence: without hematuria Qualified Code(s): N30.00 - Acute cystitis without hematuria (4) HTN (hypertension) Code(s): I10 - ESSENTIAL (PRIMARY) HYPERTENSION Status: Chronic Qualifiers: Hypertension type: essential hypertension Qualified Code(s): I10 - Essential (primary) hypertension (5) Obesity (BMI 30.0-34.9) Code(s): E66.9 - OBESITY, UNSPECIFIED Status: Chronic (6) COPD (chronic obstructive pulmonary disease) Status: Chronic Qualifiers: COPD type: chronic bronchitis Chronic bronchitis type: unspecified Qualified Code(s): J42 - Unspecified chronic bronchitis (7) DM type 2 (diabetes mellitus, type 2) Status: Chronic Qualifiers: Diabetes mellitus shelter insulin use: without petroleum terminal plant operator use Diabetes mellitus complication status: with unspecified complications Qualified Code(s) : E11.8 - Type 2 diabetes mellitus with unspecified complications (8) Tobacco abuse Code(s): Z72.0 - TOBACCO USE Status: Chronic - Plan no current chest pain -: is on asp, crestor, lisinopril -: nebs, i.spirometer -: cipro for uti -: cabg planned for friday per pt * . Review of Systems - Medications/Allergies Allergies/Adverse Reactions: Allergies Allergy/AdvReac Type Severity Reaction Status Date / Time No Known Drug Allergies Allergy Verified 03/18/18 01:00 Medications: Current Medications Acetaminophen (Tylenol) 650 mg PO Q4H PRN PRN Reason: Headache/Fever or Pain Acetaminophen/Codeine Phosphate (Tylenol #3) 1 tab PO Q4H PRN PRN Reason: Mild Pain (1-3) Acetaminophen/Codeine Phosphate (Tylenol #3) 2 tab PO Q4H PRN PRN Reason: Moderate Pain (4-6) Hydrocodone Bitart/Acetaminophen ([place] 5/325) 1 tab PO Q4H PRN PRN Reason: Moderate Pain (4-6) Al Hydroxide/Mg Hydroxide (Maalox) 30 ml PO Q6H PRN PRN Reason: Heartburn or Indigestion Albuterol/Ipratropium (Duoneb) 3 ml NEB [id number] [facility] Last Admin: 03/21/18 08:47 Dose: 3 ml Alprazolam (Xanax) 0.25 mg PO TID [facility] Last Admin: 03/21/18 08:59 Dose: 0.25 mg Aspirin (Aspirin) 325 mg PO DAILY [facility] Last Admin: 03/21/18 09:00 Dose: 325 mg Ciprofloxacin (Cipro) 500 mg PO [facility] Last Admin: 03/21/18 05:26 Dose: 500 mg Dextrose/Water (Dextrose 50%) 25 gm SLOW IVP PRN PRN PRN Reason: Hypoglycemia Duloxetine HCl (Cymbalta) 60 mg PO [facility] Last Admin: 03/20/18 20:58 Dose: 60 mg Duloxetine HCl (Cymbalta) 40 mg PO HS [facility] Last Admin: 03/20/18 20:58 Dose: 40 mg Famotidine (Pepcid) 20 mg PO BID [facility] Last Admin: 03/21/18 09:00 Dose: 20 mg Glucagon (Glucagon) 1 mg IM PRN PRN PRN Reason: Hypoglycemia Dextrose/Water (D5w) 1,000 mls @ 0 mls/hr IV .Q0M PRN; As Directed PRN Reason: Hypoglycemia Sodium Chloride (Normal Saline 0.9%) 200 mls @ 0 mls/hr IV ONE PRN; As Directed PRN Reason: Bolus PRN SBP < 90 mm Hg Stop: 03/23/18 08:28 Insulin Glargine 15 units/ (Miscellaneous Medication) 0.15 mls @ 0 mls/hr SC BID [facility] Last Admin: 03/21/18 09:00 Dose: 0.15 mls Insulin Human Lispro (Humalog) 0 units SC .MODERATE SLIDING SC PRN PRN Reason: Moderate Correctional Scale Last Admin: 03/20/18 19:02 Dose: 4 unit Insulin Human Lispro (Humalog) 0 units SC .BEDTIME SLIDING SC PRN PRN Reason: Bedtime Correctional Scale Last Admin: 03/20/18 20:59 Dose: 3 unit Lisinopril (Zestril) 10 mg PO DAILY [facility] Last Admin: 03/21/18 09:00 Dose: 10 mg Loperamide HCl (Imodium) 2 mg PO PRN PRN PRN Reason: Diarrhea/Loose Stools Last Admin: 03/18/18 17:24 Dose: 2 mg Magnesium Hydroxide (Milk Of Magnesium) 30 ml PO DAILYPRN PRN PRN Reason: Constipation Miscellaneous Information (Communication Order-Pharmacy) 1 each FS ONE ONE Stop: 03/20/18 16:56 Nicotine (Nicoderm Patch) 21 mg TD Q24HR [facility] Last Admin: 03/20/18 09:45 Dose: 21 mg Nitroglycerin (Nitrostat) 0.4 mg SL Q5MIN PRN PRN Reason: Chest Pain Ondansetron HCl (Zofran Odt) 4 mg PO Q6H PRN PRN Reason: Nausea/Vomiting Ondansetron HCl (Zofran) 4 mg IVP Q6H PRN PRN Reason: Nausea/Vomiting Rosuvastatin Calcium (Crestor) 20 mg PO [facility] Last Admin: 03/20/18 20:41 Dose: 20 mg Senna (Senokot) 2 tab PO HSPRN PRN PRN Reason: Constipation Sodium Chloride (Flush - Normal Saline) 10 ml IVF Q12HR [facility] Last Admin: 03/21/18 09:01 Dose: 10 ml Sodium Chloride (Flush - Normal Saline) 10 ml IVF PRN PRN PRN Reason: Saline Flush Last Admin: 03/18/18 03:21 Dose: 10 ml Tramadol HCl (Ultram) 50 mg PO Q6H PRN PRN Reason: Moderate Pain (4-6) Trazodone HCl (Desyrel) 100 mg PO [facility] Last Admin: 03/20/18 20:41 Dose: 100 mg Zolpidem Tartrate (Ambien) 5 mg PO HSPRN PRN PRN Reason: Insomnia
[2018-03-21] MEDS: HumaLOG 300 UNITS/3 ML VIAL SC PRN ×3 (11:58→20:49)
[2018-03-21] MEDS: Nicotine 21 MG PATCH TD SCH (12:00)
--- NOTE | 2018-03-21 14:04 | PRG ---
DATE OF SERVICE: 03/21/2018 SUBJECTIVE: This morning, she is better. She is less short of breath. She is scheduled for bypass surgery on Friday. OBJECTIVE: VITAL SIGNS: Sats are still low 82% on 2 liters, temperature 98, pulse 140, respiration rate 16. CHEST: Decreased breath sounds, minimal wheezing. CARDIAC: Normal S1, S2, no gallops. ABDOMEN: Soft, no masses. IMPRESSION: Chronic obstructive pulmonary disease, tobacco abuse, coronary artery disease. She is still wheezing. PLAN: Added Dulera and steroids to her present regime. We will follow.
[2018-03-21] MEDS: Mometasone/Formoterol 120 PUFF INHALER INH SCH (18:30)
[2018-03-21] MEDS: DULoxetine 60 MG CAP PO SCH (20:47)
[2018-03-21] MEDS: traZODone HCl 50 MG TAB PO SCH (20:48)
[2018-03-21] MEDS: Rosuvastatin 20 MG TAB PO SCH (20:48)
[2018-03-22] MEDS: Ciprofloxacin 500 MG TAB PO SCH ×2 (06:01→21:18)
[2018-03-22] MEDS: HumaLOG 300 UNITS/3 ML VIAL SC PRN ×3 (06:01→17:58)
[2018-03-22] MEDS: Mometasone/Formoterol 120 PUFF INHALER INH SCH ×2 (06:44→18:58)
[2018-03-22 07:48] LABS: Anion Gap 14 mmol/L (10-20); BUN (Urea Nitrogen) 16 mg/dL (9.8-20.1); Calc. Creatinine Clearance 105 mL/min (70-130); Carbon Dioxide 22 mmol/L (23-31); Chloride 103 mmol/L (98-107); Estimated GFR-MDRD 78; Glucose 314 mg/dL (80-115); Potassium 4.4 mmol/L (3.5-5.1); Sodium 135 mmol/L (136-145)
[2018-03-22] MEDS ORDERED: HumaLOG 300 UNITS/3 ML VIAL SC PRN (08:11)
[2018-03-22] MEDS: Insulin Glargine 25 UNITS in Pre-Filled Syringe 1 EACH SC SCH ×2 (09:30→21:16)
[2018-03-22] MEDS: Famotidine 20 MG TAB PO SCH ×2 (09:31→21:18)
[2018-03-22] MEDS: Aspirin 325 MG TAB PO SCH (09:31)
[2018-03-22] MEDS: Lisinopril 10 MG TAB PO SCH (09:31)
--- NOTE | 2018-03-22 10:07 | PDOC.PN ---
- Subjective Encounter Start Date: 03/22/18 Encounter Start Time: 08:45 Subjective: no chest pain or sob -: breathing better, is amb in room -: at bedside - Objective MAR Reviewed: Yes Vital Signs & Weight: Vital Signs (12 hours) Temp Pulse Resp BP Pulse Ox 03/22/18 06:43 74 14 94 L 03/22/18 03:46 98.7 F 99 20 170/79 H 93 L 03/22/18 00:15 93 L 03/22/18 00:13 94 L 03/22/18 00:00 96.4 F L 88 18 127/63 92 L Weight Weight 190 lb 1.6 oz I&O: 03/21/18 03/22/18 03/23/18 06:59 06:59 06:59 Intake Total 580 820 Output Total 720 920 Balance -140 -100 Result Diagrams: 03/18/18 04:47 03/22/18 07:13 Additional Labs: Accuchecks 03/22/18 03/21/18 03/21/18 05:36 20:35 16:58 POC Glucose 335 H 414 H 374 H 03/21/18 11:14 POC Glucose 243 H Phys Exam - Physical Examination HEENT: PERRLA, moist MMs Neck: no JVD, supple Respiratory: no wheezing, no rales rhonchi+ Cardiovascular: RRR, no significant murmur Gastrointestinal: soft, non-tender, no distention, positive bowel sounds Musculoskeletal: no edema, pulses present Neurological: non-focal, moves all 4 limbs Psychiatric: normal affect, A&O x 3 Dx/Plan (1) CAD (coronary artery disease) Code(s): I25.10 - ATHSCL HEART DISEASE OF [place] CORONARY ARTERY W/O ANG PCTRS Status: Acute Qualifiers: Coronary Disease-Associated Artery/Lesion type: [place] artery [place] vs. transplanted heart: [place] heart Comment: cabg on friday (2) Chest pain Code(s): R07.9 - CHEST PAIN, UNSPECIFIED Status: Acute Qualifiers: Chest pain type: chest pain due to myocardial ischemia (3) UTI (urinary tract infection) Status: Acute Qualifiers: Urinary tract infection type: acute cystitis Hematuria presence: without hematuria Qualified Code(s): N30.00 - Acute cystitis without hematuria Comment: ryan callaway on 03/23/2018 (4) HTN (hypertension) Code(s): I10 - ESSENTIAL (PRIMARY) HYPERTENSION Status: Chronic Qualifiers: Hypertension type: essential hypertension Qualified Code(s): I10 - Essential (primary) hypertension (5) Obesity (BMI 30.0-34.9) Code(s): E66.9 - OBESITY, UNSPECIFIED Status: Chronic (6) COPD (chronic obstructive pulmonary disease) Status: Chronic Qualifiers: COPD type: chronic bronchitis Chronic bronchitis type: unspecified Qualified Code(s): J42 - Unspecified chronic bronchitis (7) DM type 2 (diabetes mellitus, type 2) Status: Chronic Qualifiers: Diabetes mellitus long term care pharmacist insulin use: without long term care pharmacist use Diabetes mellitus complication status: with hyperglycemia Qualified Code(s): E11.65 - Type 2 diabetes mellitus with hyperglycemia (8) Tobacco abuse Code(s): Z72.0 - TOBACCO USE Status: Chronic - Plan dm uncontrolled due to steroids, reduce solumedrol to 20mg q8h -: increase lantus to 25 u bid -: for cabg tomorrow afternoon -: is using incentive spirometry, nebs -: on asp, lisinopril and crestor * . Review of Systems - Medications/Allergies Allergies/Adverse Reactions: Allergies Allergy/AdvReac Type Severity Reaction Status Date / Time No Known Drug Allergies Allergy Verified 03/18/18 01:00 Medications: Current Medications Acetaminophen (Tylenol) 650 mg PO Q4H PRN PRN Reason: Headache/Fever or Pain Stop: 03/23/18 08:59 Acetaminophen/Codeine Phosphate (Tylenol #3) 1 tab PO Q4H PRN PRN Reason: Mild Pain (1-3) Stop: 03/23/18 08:59 Acetaminophen/Codeine Phosphate (Tylenol #3) 2 tab PO Q4H PRN PRN Reason: Moderate Pain (4-6) Stop: 03/23/18 08:59 Hydrocodone Bitart/Acetaminophen ([place] 5/325) 1 tab PO Q4H PRN PRN Reason: Moderate Pain (4-6) Stop: 03/23/18 08:59 Al Hydroxide/Mg Hydroxide (Maalox) 30 ml PO Q6H PRN PRN Reason: Heartburn or Indigestion Stop: 03/23/18 08:59 Albuterol/Ipratropium (Duoneb) 3 ml NEB Q7EX-QN [facility] Stop: 03/23/18 08:59 Last Admin: 03/22/18 06:43 Dose: 3 ml Alprazolam (Xanax) 0.25 mg PO TID [facility] Stop: 03/23/18 08:59 Last Admin: 03/21/18 20:48 Dose: 0.25 mg Aspirin (Aspirin) 325 mg PO DAILY [facility] Stop: 03/23/18 08:59 Last Admin: 03/22/18 09:31 Dose: 325 mg Ciprofloxacin (Cipro) 500 mg PO [phone] [facility] Stop: 03/23/18 08:59 Last Admin: 03/22/18 06:01 Dose: 500 mg Dextrose/Water (Dextrose 50%) 25 gm SLOW IVP PRN PRN PRN Reason: Hypoglycemia Stop: 03/23/18 08:59 Duloxetine HCl (Cymbalta) 60 mg PO HS [facility] Stop: 03/23/18 08:59 Last Admin: 03/21/18 20:47 Dose: 60 mg Duloxetine HCl (Cymbalta) 40 mg PO HS [facility] Stop: 03/23/18 08:59 Last Admin: 03/21/18 20:48 Dose: 40 mg Famotidine (Pepcid) 20 mg PO BID [facility] Stop: 03/23/18 08:59 Last Admin: 03/22/18 09:31 Dose: 20 mg Glucagon (Glucagon) 1 mg IM PRN PRN PRN Reason: Hypoglycemia Stop: 03/23/18 08:59 Dextrose/Water (D5w) 1,000 mls @ 0 mls/hr IV .Q0M PRN; As Directed PRN Reason: Hypoglycemia Stop: 03/23/18 08:59 Sodium Chloride (Normal Saline 0.9%) 200 mls @ 0 mls/hr IV ONE PRN; As Directed PRN Reason: Bolus PRN SBP < 90 mm Hg Stop: 03/23/18 08:28 Insulin Glargine 25 units/ (Miscellaneous Medication) 0.25 mls @ 0 mls/hr SC BID [facility] Last Admin: 03/22/18 09:30 Dose: 0.25 mls Insulin Human Lispro (Humalog) 0 units SC .AGGRESSIVE SLIDING PRN; Protocol PRN Reason: AGGRESSIVE SLIDING SCALE Insulin Human Lispro (Humalog) 0 units SC .BEDTIME SLIDING SC PRN; Protocol PRN Reason: BEDTIME SLIDING SCALE Lisinopril (Zestril) 10 mg PO DAILY [facility] Last Admin: 03/22/18 09:31 Dose: 10 mg Loperamide HCl (Imodium) 2 mg PO PRN PRN PRN Reason: Diarrhea/Loose Stools Stop: 03/23/18 08:59 Last Admin: 03/18/18 17:24 Dose: 2 mg Magnesium Hydroxide (Milk Of Magnesium) 30 ml PO DAILYPRN PRN PRN Reason: Constipation Stop: 03/23/18 08:59 Methylprednisolone Sodium Succinate (Solu-Medrol) 20 mg IVP Q8HR [facility] Miscellaneous Information (Communication Order-Pharmacy) 1 each FS ONE [facility] Stop: 03/23/18 08:59 Mometasone Furoate/Formoterol Fumar (Dulera 200 Mcg/5 Mcg Inhaler) 2 puff INH BID-RT [facility] Stop: 03/23/18 08:59 Last Admin: 03/22/18 06:44 Dose: 2 puff Nicotine (Nicoderm Patch) 21 mg TD Q24HR [facility] Stop: 03/23/18 08:59 Last Admin: 03/21/18 12:00 Dose: 21 mg Nitroglycerin (Nitrostat) 0.4 mg SL Q5MIN PRN PRN Reason: Chest Pain Stop: 03/23/18 08:59 Ondansetron HCl (Zofran Odt) 4 mg PO Q6H PRN PRN Reason: Nausea/Vomiting Stop: 03/23/18 08:59 Ondansetron HCl (Zofran) 4 mg IVP Q6H PRN PRN Reason: Nausea/Vomiting Stop: 03/23/18 08:59 Rosuvastatin Calcium (Crestor) 20 mg PO HS [facility] Stop: 03/23/18 08:59 Last Admin: 03/21/18 20:48 Dose: 20 mg Senna (Senokot) 2 tab PO HSPRN PRN PRN Reason: Constipation Stop: 03/23/18 08:59 Sodium Chloride (Flush - Normal Saline) 10 ml IVF Q12HR [facility] Stop: 03/23/18 08:59 Last Admin: 03/22/18 09:31 Dose: 10 ml Sodium Chloride (Flush - Normal Saline) 10 ml IVF PRN PRN PRN Reason: Saline Flush Stop: 03/23/18 08:59 Last Admin: 03/22/18 06:00 Dose: 10 ml Tramadol HCl (Ultram) 50 mg PO Q6H PRN PRN Reason: Moderate Pain (4-6) Stop: 03/23/18 08:59 Trazodone HCl (Desyrel) 100 mg PO HS [facility] Stop: 03/23/18 08:59 Last Admin: 03/21/18 20:48 Dose: 100 mg Zolpidem Tartrate (Ambien) 5 mg PO HSPRN PRN PRN Reason: Insomnia Stop: 03/23/18 08:59
[2018-03-22] MEDS: ALPRAZolam 0.25 MG TAB PO SCH ×3 (11:17→21:18)
--- NOTE | 2018-03-22 12:13 | PRG ---
DATE OF SERVICE: 03/22/2018 SUBJECTIVE: This morning, she is better. She is less short of breath. OBJECTIVE: VITAL SIGNS: Sats are 90 on 2 liters, pulse is 100, temperature is 98, respirations 18, blood pressu re 180/80. CHEST: Minimal wheezing. CARDIAC: Normal S1, S2, no gallops. ABDOMEN: Soft without any masses. IMPRESSION: 1. Chronic obstructive pulmonary disease. 2. Tobacco abuse. 3. Coronary artery disease. PLAN: The patient is scheduled for surgery tomorrow. Continue nebulizer treatments, steroids. We will follow.
[2018-03-22] MEDS: Nicotine 21 MG PATCH TD SCH (15:03)
[2018-03-22] MEDS: Rosuvastatin 20 MG TAB PO SCH (21:17)
[2018-03-22] MEDS: traZODone HCl 50 MG TAB PO SCH (21:17)
[2018-03-22] MEDS: DULoxetine 60 MG CAP PO SCH (21:17)
[2018-03-23 05:09] LABS: Anion Gap 14 mmol/L (10-20); BUN (Urea Nitrogen) 19 mg/dL (9.8-20.1); Calc. Creatinine Clearance 109 mL/min (70-130); Calcium 9.2 mg/dL (7.8-10.44); Carbon Dioxide 23 mmol/L (23-31); Chloride 102 mmol/L (98-107); Estimated GFR-MDRD 82; Glucose 297 mg/dL (80-115); Potassium 3.7 mmol/L (3.5-5.1); Sodium 135 mmol/L (136-145)
[2018-03-23] MEDS: Ciprofloxacin 500 MG TAB PO SCH ×2 (05:53→21:05)
[2018-03-23] MEDS: Mometasone/Formoterol 120 PUFF INHALER INH SCH ×2 (06:50→23:11)
[2018-03-23] MEDS ORDERED: Loperamide HCl 2 MG CAP PO PRN (09:02)
[2018-03-23] MEDS ORDERED: Milk Of Magnesia 30 ML UDCUP PO PRN (09:02)
[2018-03-23] MEDS ORDERED: Ondansetron HCl/PF 4 MG/2 ML Vial IVP PRN (09:03)
[2018-03-23] MEDS ORDERED: Ondansetron ODT 4 MG TAB PO PRN (09:03)
[2018-03-23] MEDS ORDERED: Zolpidem Tartrate 5 MG TAB PO PRN (09:04)
[2018-03-23] MEDS ORDERED: Senokot 8.6 MG TAB PO PRN (09:04)
[2018-03-23] MEDS ORDERED: traMADol HCl 50 MG TAB PO PRN (09:05)
[2018-03-23] MEDS ORDERED: Nitroglycerin 0.4 MG TAB (25 Tab Bottle) SL PRN (09:05)
[2018-03-23] MEDS: Famotidine 20 MG TAB PO SCH ×2 (09:46→21:04)
[2018-03-23] MEDS: Aspirin 325 MG TAB PO SCH (09:46)
[2018-03-23] MEDS: Insulin Glargine 25 UNITS in Pre-Filled Syringe 1 EACH SC SCH ×2 (09:46→21:11)
[2018-03-23] MEDS: Lisinopril 10 MG TAB PO SCH ×2 (09:46→21:05)
[2018-03-23] MEDS: Nicotine 21 MG PATCH TD SCH (09:47)
--- NOTE | 2018-03-23 09:50 | PDOC.PN ---
- Subjective Encounter Start Date: 03/23/18 Encounter Start Time: 11:10 Subjective: Patient reports no chest pain or chest heaviness. No complaints. CABG -: has been moved to tomorrow AM. - Objective MAR Reviewed: Yes Vital Signs & Weight: Vital Signs (12 hours) Temp Pulse Resp BP Pulse Ox 03/23/18 07:38 97.9 F 89 19 141/83 H 95 03/23/18 05:58 151/81 H 03/23/18 03:46 97.7 F 98 19 170/86 H 98 03/22/18 23:45 94 L Weight Weight 190 lb 1.6 oz I&O: 03/22/18 03/23/18 03/24/18 06:59 06:59 06:59 Intake Total 820 820 Output Total 920 Balance -100 820 Result Diagrams: 03/18/18 04:47 03/23/18 04:26 Additional Labs: Accuchecks 03/23/18 03/22/18 03/22/18 07:23 20:27 16:58 POC Glucose 272 H 350 H 362 H 03/22/18 10:59 POC Glucose 317 H Phys Exam - Physical Examination Constitutional: NAD HEENT: moist MMs Respiratory: no rales, no rhonchi occ. wheeze Cardiovascular: RRR, no significant murmur Gastrointestinal: soft, positive bowel sounds Neurological: non-focal, moves all 4 limbs Psychiatric: normal affect, A&O x 3 Dx/Plan (1) CAD (coronary artery disease) Code(s): I25.10 - ATHSCL HEART DISEASE OF [place] CORONARY ARTERY W/O ANG PCTRS Status: Acute Qualifiers: Coronary Disease-Associated Artery/Lesion type: [place] artery [place] vs. transplanted heart: [place] heart Comment: multivessel disease, cabg on Friday (2) Chest pain Code(s): R07.9 - CHEST PAIN, UNSPECIFIED Status: Resolved Qualifiers: Chest pain type: chest pain due to myocardial ischemia (3) UTI (urinary tract infection) Status: Acute Qualifiers: Urinary tract infection type: acute cystitis Hematuria presence: without hematuria Qualified Code(s): N30.00 - Acute cystitis without hematuria Comment: resolving, ryan bell on 03/23/2018 (4) COPD (chronic obstructive pulmonary disease) Status: Chronic Qualifiers: COPD type: chronic bronchitis Chronic bronchitis type: unspecified Qualified Code(s): J42 - Unspecified chronic bronchitis (5) DM type 2 (diabetes mellitus, type 2) Status: Chronic Qualifiers: Diabetes mellitus salvage determiner insulin use: without penitentiary use Diabetes mellitus complication status: with hyperglycemia Qualified Code(s): E11.65 - Type 2 diabetes mellitus with hyperglycemia (6) HTN (hypertension) Code(s): I10 - ESSENTIAL (PRIMARY) HYPERTENSION Status: Chronic Qualifiers: Hypertension type: essential hypertension Qualified Code(s): I10 - Essential (primary) hypertension (7) Obesity (BMI 30.0-34.9) Code(s): E66.9 - OBESITY, UNSPECIFIED Status: Chronic (8) Tobacco abuse Code(s): Z72.0 - TOBACCO USE Status: Chronic - Plan cont current plan of care, continue antibiotics CABG tomorrow AM * . - Discharge Day Encounter end time: 11:30
[2018-03-23] MEDS: ALPRAZolam 0.25 MG TAB PO SCH ×3 (09:53→21:05)
--- NOTE | 2018-03-23 12:18 | PDOC.CTH ---
<Re Welch - Last Filed: 03/23/18 12:13> Cardiology Progress Note - Subjective The pt seen and examined. No overnight events. No cardiac complaints. Plan for CABG tomorrow. - Objective Vital Signs Temp Pulse Resp BP Pulse Ox 03/23/18 07:38 97.9 F 89 19 141/83 H 95 03/23/18 05:58 151/81 H 03/23/18 03:46 97.7 F 98 19 170/86 H 98 Weight 190 lb 1.6 oz 03/22/18 03/23/18 03/24/18 06:59 06:59 06:59 Intake Total 820 820 Output Total 920 Balance -100 820 - Physical Examination General/Neuro: alert & oriented x3 Neck: no JVD present Lungs: other: (very diminished at bases) Heart: RRR Abdomen: soft Extremities: other: (No edema) - Telemetry Telemetry Rhythm: SR - Labs Result Diagrams: 03/18/18 04:47 03/23/18 04:26 Troponin/CKMB CK-MB (CK-2) 1.2 ng/mL (0-6.6) 03/17/18 17:23 Troponin I Less than 0.010 ng/mL (< 0.028) 03/18/18 01:16 - Assessment/Plan 1. CAD - Plan for CABG tomorrow; On MAIN, ASA, Lovenox, and Statin, but no BBlocker due to severe COPD 2. HTN - increase Lisinopril 10mg from qd to BID 3. DM type 2 - managed by PCP 4. COPD - stable with RA 5. Hx of UTI - resolved; managed by PCP 6. Current smoker - smoking cessation education given to the pt and family MAR reviewed Review of Systems - Review of Systems Constitutional: reports: no symptoms reported EENTM: reports: no symptoms reported Respiratory: reports: no symptoms reported Cardiac (ROS): reports: no symptoms reported ABD/GI: reports: no symptoms reported : reports: no symptoms reported Musculoskeletal: reports: no symptoms reported <Jon Gonzalez - Last Filed: 03/23/18 19:43> Cardiology Progress Note - Objective Vital Signs Temp Pulse Resp BP Pulse Ox 03/23/18 16:00 98.7 F 97 16 141/86 H 94 L 03/23/18 13:54 81 16 94 L 03/23/18 11:50 98.6 F 97 16 159/74 H 94 L 03/23/18 08:00 97.9 F 89 19 95 Weight 190 lb 1.6 oz 03/22/18 03/23/18 03/24/18 06:59 06:59 06:59 Intake Total 820 820 Output Total 920 Balance -100 820 - Labs Result Diagrams: 03/18/18 04:47 03/23/18 04:26 Troponin/CKMB CK-MB (CK-2) 1.2 ng/mL (0-6.6) 03/17/18 17:23 Troponin I Less than 0.010 ng/mL (< 0.028) 03/18/18 01:16 - Assessment/Plan Pt. is scheduled for CABG in AM. She is not in her room at present but is downstairs smoking. She does not seem to grasp the importance of abstaining from her tobacco habit. Hopefully she will do well post-op. I agree with the A/P by the ENGINEERING SPECIALIST.
--- NOTE | 2018-03-23 12:46 | PRG ---
DATE OF SERVICE: 03/20/2018 SUBJECTIVE: She was down smoking. I advised that she should quit smoking. She has postop pneumonia and she would have a prolonged hospitalization. OBJECTIVE: VITAL SIGNS: Sats are 95% on room air, pulse 89, respiration 19, temperature 97, blood pressure 140/ 83. CHEST: Minimal wheezing. CARDIAC: Normal S1, S2. No gallops. ABDOMEN: Soft, no masses. IMPRESSION: 1. Chronic obstructive pulmonary disease. 2. Bronchitis. 3. Ongoing tobacco abuse. 4. Coronary artery disease. PLAN: Once again, she refrain from smoking. We are unable do a PFT until tomorrow. She is schedule d for surgery tomorrow. Continue steroids, nebulizer treatment. Empiric antibiotics. We will follow.
[2018-03-23] MEDS: HumaLOG 300 UNITS/3 ML VIAL SC PRN ×2 (14:15→18:28)
[2018-03-23] MEDS ORDERED: Rosuvastatin 20 MG TAB PO SCH (21:00)
[2018-03-23] MEDS ORDERED: traZODone HCl 50 MG TAB PO SCH (21:00)
[2018-03-23] MEDS: DULoxetine 60 MG CAP PO SCH (21:05)
[2018-03-24] MEDS ORDERED: CEFAZOLIN/Water 2 GM/20 ML SYRINGE SLOW IVP SCH (04:30)
[2018-03-24] MEDS: Ciprofloxacin 500 MG TAB PO SCH (05:18)
[2018-03-24] MEDS: Lisinopril 10 MG TAB PO SCH (05:43)
[2018-03-24] MEDS ORDERED: CEFAZOLIN/Water 2 GM/20 ML SYRINGE ONE (06:03)
[2018-03-24] MEDS ORDERED: Albumin 5% 500 ML ONE ×2 (06:27→11:10)
[2018-03-24] MEDS ORDERED: Fentanyl 100 MCG/2 ML VIAL ONE (06:30)
[2018-03-24] MEDS ORDERED: Dexmedetomidine 200 MCG/2 ML VIAL ONE (06:30)
[2018-03-24] MEDS ORDERED: Vecuronium 10 MG VIAL ONE ×2 (06:30→11:49)
[2018-03-24] MEDS ORDERED: Midazolam HCl 5 mg/5 ml Vial ONE (06:30)
[2018-03-24] MEDS: Mometasone/Formoterol 120 PUFF INHALER INH SCH (06:53)
[2018-03-24] MEDS ORDERED: Heparin 10,000 UNITS/1 ML VIAL 30,000 UNITS in Sodium Chloride 0.9% 1,000 ML IVPB SCH (07:00)
[2018-03-24] MEDS ORDERED: Sodium Chloride 0.9% 10 ML ONE (07:08)
[2018-03-24] MEDS ORDERED: Insulin Regular 300 UNITS/3 ML VIAL ONE (08:15)
[2018-03-24] MEDS ORDERED: niCARdipine HCl 25 MG in Sodium Chloride 0.9% 250 ML 240 ML IVPB SCH (11:15)
[2018-03-24] MEDS ORDERED: Heparin 30,000 units/30 ml VIAL ONE (11:49)
[2018-03-24] MEDS ORDERED: ePHEDrine/0.9% NaCl/PF SYRINGE 50 mg/10 ml ONE (11:49)
[2018-03-24] MEDS ORDERED: Norepinephrine 4 MG/4 ML VIAL ONE (11:49)
[2018-03-24] MEDS ORDERED: Calcium Chloride 1 GM/10 ML Abboject SYRINGE ONE (11:49)
[2018-03-24] MEDS ORDERED: Magnesium 5 GM/10 ML VIAL ONE (11:49)
[2018-03-24] MEDS ORDERED: Mannitol 12.5 GM/50 ML ONE (11:49)
[2018-03-24] MEDS ORDERED: Protamine Sulfate 250 MG/25 ML VIAL ONE (11:49)
[2018-03-24] MEDS ORDERED: PHENYLEPHRINE-NS 100 MCG/ML 10 ML SYRINGE ONE (11:49)
[2018-03-24] MEDS ORDERED: PROPOFOL 200 MG/20 ML VIAL ONE (11:49)
[2018-03-24] MEDS ORDERED: Nitroglycerin 50 MG/250 ML BOT ONE (11:49)
[2018-03-24] MEDS ORDERED: Sodium Bicarb 50 MEQ/50 ML VIAL ONE (11:49)
[2018-03-24] MEDS ORDERED: Cardioplegic Soln 1,000 ML BAG ONE (11:49)
[2018-03-24] MEDS ORDERED: Lidocaine 2% PF 100 mg/5 ml Syringe ONE (11:49)
[2018-03-24] MEDS ORDERED: Heparin 5,000 UNITS/ML VIAL ONE (11:49)
[2018-03-24] MEDS ORDERED: Potassium Chlo 10 mEq/5 ml Syr ONE (11:49)
[2018-03-24] MEDS ORDERED: Papaverine 60 MG/2 ML VIAL ONE (11:49)
[2018-03-24] MEDS ORDERED: hydrALAZINE 20 MG/ML VIAL SLOW IVP PRN (12:40)
[2018-03-24] MEDS ORDERED: Guaifenesin DM 100-10/5 ML UDCUP PO PRN (12:40)
[2018-03-24] MEDS ORDERED: niCARdipine HCl 25 MG in Sodium Chloride 0.9% 250 ML 240 ML IVPB PRN (12:40)
[2018-03-24] MEDS ORDERED: Bisacodyl 5 MG TAB PO PRN (12:40)
[2018-03-24] MEDS ORDERED: HYDROcodone/Acetaminophen 5/325 mg Tablet PO PRN (12:40)
[2018-03-24] MEDS ORDERED: Promethazine HCl 25 MG/ML VIAL IM PRN (12:40)
[2018-03-24] MEDS ORDERED: Mag-Al 1200 mg/1200 mg/30 ML UDCUP PO PRN (12:40)
[2018-03-24] MEDS ORDERED: Fentanyl 100 MCG/2 ML VIAL SLOW IVP PRN (12:40)
[2018-03-24] MEDS ORDERED: Nitroglycerin 50 MG/250 ML BOT 250 ML IVPB PRN (12:40)
[2018-03-24] MEDS ORDERED: Post-Op Insulin Drip Protocol IVPB ONE (12:40)
[2018-03-24] MEDS ORDERED: Bisacodyl 10 MG SUPP PR PRN (12:40)
[2018-03-24] MEDS ORDERED: Acetaminophen 325 MG TAB PO PRN (12:40)
[2018-03-24] MEDS ORDERED: Ondansetron HCl/PF 4 MG/2 ML Vial IVP PRN (12:40)
[2018-03-24] MEDS ORDERED: Hetastarch 6% 500 ML 500 ML IVPB PRN (12:40)
[2018-03-24] MEDS ORDERED: DOPamine 400 MG/D5W 250 ML 250 ML IVPB PRN (12:40)
[2018-03-24] MEDS ORDERED: Dextrose 50% Abboject 50 ML SYRINGE SLOW IVP PRN (12:51)
[2018-03-24] MEDS ORDERED: Dextrose 5% in Water 1,000 ML IV PRN (12:51)
[2018-03-24 13:15] LABS: Hemoglobin 11.1 g/dL (12.0-16.0); Mean Corpuscular HGB CONC 33.7 g/dL (32.0-36.0); Mean Corpuscular Hemoglobin 34.4 pg (27.0-31.0); Mean Platelet Volume 7.7 fL (7.4-10.4); Platelet Count 136 thou/uL (130-400); RBC Distribution Width 11.9 % (11.5-14.5); Red Blood Cell (RBC) Count 3.22 mill/uL (4.20-5.40); White Blood Cell (WBC) Count 25.6 thou/uL (4.8-10.8)
--- NOTE | 2018-03-24 13:25 | OP ---
DATE OF PROCEDURE: 03/24/2018 PROCEDURE PERFORMED: Coronary artery bypass grafting x4 with free right internal mammary artery from the aorta to the LAD and reverse greater saphenous vein graft from aorta to the first diagonal to th e first obtuse marginal and to the PDA. PREOPERATIVE DIAGNOSES: Left main coronary artery disease; chronic obstructive pulmonary disease; pe ripheral vascular disease with left subclavian stenosis. POSTOPERATIVE DIAGNOSES: Left main coronary artery disease; chronic obstructive pulmonary disease; p eripheral vascular disease with left subclavian stenosis. SURGEON: Miguel Angel Vela M.D. CASH GRAIN GROWER: Dr. Zhong. ANESTHESIA: General endotracheal anesthesia. INDICATIONS: The patient is a 62-year-old diabetic, inveterate smoker who had a stress test that was part of an overall cardiovascular evaluation that was abnormal. Upon questioning, there had been a change in her pattern of shortness of breath and she now gets quite short of breath just simply walki ng about half a block. She has had 2 episodes of chest pressure that have awakened her from sleep. Cardiac catheterization demonstrated the left main coronary disease and an occluded right coronary fi lling left to right. She is now taken to the operating room for revascularization. FINDINGS: Pump time 130 minutes. Cross clamp time 44 minutes. Good quality right NATALIE and saphenous vein. The LAD was about a 1.5-2 mm vessel, the diagonal about 1.5-2 mm, the obtuse marginal about 2 mm and the PDA was about 1.5 mm. The upper portion of the pericardium was closed. NARRATIVE REPORT: After informed consent was obtained, the patient was taken to the operating room a nd placed in the supine position on the operating table. After the induction of general anesthesia, the patient's lower extremities were ultrasonographically mapped. The vein from the left lower extre mity appeared to be adequate for use as a conduit. The patient's left upper chest was prepped and dr aped in the sterile fashion and a triple-lumen central line kit was used to cannulate the left subcla vian vein by the Seldinger technique. The triple-lumen catheter easily passed over the wire. The wi re was removed. Ports aspirated and flushed easily. The line was secured to the skin with suture. The patient's torso, groins and lower extremities were prepped and draped in sterile fashion and the assistant attorney general endoscopically harvested the left greater saphenous vein with the port site just above the knee. It was harvested from the level of the groin to the mid calf and prepared for use as a graft. The port site was closed in layers of subcutaneous and subcuticular Vicryl and the stab incisions pr oximally and distally were simply glued. The median sternotomy was performed. An attempt was briefl y made to develop an extrapleural exposure of the right mammary, but 2 separate areas very promptly r esulted in violation of the pleura and those attempts were abandoned and the right pleura was opened widely. The right NATALIE was harvested as a free graft from the level of the xiphoid to the level of th e innominate vein. It was doubly ligated with Hemoclips proximally and with Hemoclips and silk sutur e distally. The proximal and distal limbs were skeletonized distally, one of the bifurcation branche s was cannulated with a small olive tip needle and the mammary distended with papaverine solution to relieve spasm and to verify adequacy of control of side branches. The mammary bed was inspected for hemostasis and a 36-[place]izen [place] chest tube was used to drain the right pleural space. The NATALIE retractor w as placed with Anmol retractor. Pericardium was opened and marsupialized. The aorta was palpated a nd it was soft. A double concentric pursestring of 2-0 Ethibond was placed in the ascending aorta ju st beyond the pericardial reflection as the intrapericardial aorta was relatively short. A single pu rsestring was placed in the right atrial appendage. Aortic and venous cannula were inserted and secu red, both are pursestrings. The plane between the aorta and the pulmonary artery was developed and t he aorta was reinspected by palpation. Upon instituting cardiopulmonary bypass, an aortic crossclamp was applied and cardioplegia was administered through an aortic root needle. When arrest had been a chieved, attention was turned to the PDA. It was exposed and opened in its mid portion on the unders urface of the heart where it emerged from the generous fat pad at the AV groove. Saphenous vein was anastomosed there end-to-side with running 6-0 Prolene suture and the anastomosis tested by flushing cold cardioplegia down the graft. The OM and then the diagonal were each opened and grafted in a sim ilar fashion. The LAD was opened. The proximal end of the mammary was freshened and spatulated and anastomosed to the LAD with running 7-0 Prolene. The aortic crossclamp was placed with partial occlu ding clamp. Aortotomies were made in the ascending aorta with a scalpel and punch incorporating the root needle site for one of the aortotomies. The PDA graft was anastomosed to the more proximal aort otomy and the diagonal graft to the more distal aortotomy. Because of the relatively short intraperi cardial aorta, only 2 proximal anastomoses directly to the aorta were constructed. The OM graft was brought off the moyer of the diagonal graft. The LAD graft was trimmed to length, skeletonizing the a nastomotic portion of the mammary. It was generously spatulated and anastomosed to the moyer of the P DA graft. It was allowed to backbleed and then occlude at the anastomosis. After securing the sutur e line, the partial occluding clamp was removed. The vein grafts were deaired. The anastomoses were inspected for hemostasis. The proximal anastomoses were marked with small Hemoclips. A posterior p ericardial drain was brought out through a separate incision and secured with suture. Right atrial a nd right ventricular temporary epicardial pacing wires were placed. The patient was then easily sepa rated from cardiopulmonary bypass. Aortic and venous cannula removed and the pursestring secured. P rotamine was administered and hemostasis was adequate. An anterior mediastinal drain was placed. It was not feasible to effect a complete closure of the pericardium, but it was feasible to reapproxima te the upper portion of the pericardium to cover up the grafts in the aorta. The sternum was reappro ximated with a combination of simple and a [id number] #7 stainless steel wires. Fascia closed o breanna the wires with heavy Vicryl. Subcutaneous tissue was irrigated and reapproximated and the skin w as closed with 4-0 Vicryl subcuticular suture. The wounds were dressed and the patient was taken to the Intensive Care Unit in stable condition.
[2018-03-24 13:29] LABS: Actual Bicarbonate (HCO3a) 24.2 mEq/L (22-28); Base Excess (BEa) -2.3 mEq/L (-2.0 to +3.0); CO2 Tension 49.4 mmHg (35.0-45.0); Hematocrit-ABG 33.2 % (36.0-47.0); Hemoglobin (Hb) 10.9 g/dL (12.0-16.0); O2 Tension (PaO2) 77.3 mmHg (> 80.0); pH, Arterial 7.31 (7.35-7.45)
[2018-03-24 13:29] LABS: INR-International Normal Ratio 1.5; PTT 28.5 SEC (22.9-36.1); Prothrombin Time 18.3 SEC (12.0-14.7)
[2018-03-24 13:30] LABS: Calcium, Ionized 1.1 mmol/L (1.12-1.30); Puncture Site ALINE
[2018-03-24] MEDS ORDERED: Propofol 1,000 MG/100 ML VIAL IV ONE (13:35)
[2018-03-24] MEDS: Sodium Chloride 0.9% 1,000 ML IV SCH (13:37)
[2018-03-24] MEDS ORDERED: Propofol 1,000 MG/100 ML VIAL IV PRN (13:39)
[2018-03-24 13:43] LABS: Anion Gap 10 mmol/L (10-20); BUN (Urea Nitrogen) 12 mg/dL (9.8-20.1); Calc. Creatinine Clearance 148 mL/min (70-130); Calcium 7.4 mg/dL (7.8-10.44); Carbon Dioxide 25 mmol/L (23-31); Chloride 109 mmol/L (98-107); Estimated GFR-MDRD Greater than 90; Glucose 150 mg/dL (80-115); Potassium 3.5 mmol/L (3.5-5.1); Sodium 140 mmol/L (136-145)
[2018-03-24 13:59] LABS: Band 2 % (5-11); Lymphocytes 9 % (21-51); MDiff Complete? YES; Monocytes 9 % (0-10); Neutrophil 79 % (42-75); PLT Morphology Comment Appears Adequate
--- NOTE | 2018-03-24 14:00 | RAD ---
SEMI UPRIGHT PORTABLE CHEST ONE VIEW: History: 62-year-old female post op open heart, follow up. Comparison: 03-17-18 FINDINGS: Recent post underlying sternotomy. Left subclavian catheter, NG tube, and endotracheal tubes, and ziggy st tubes in place. Bilateral vascular congestion. Some widening of the anterior mediastinum. Minimal plural and parenchymal opacity changes in the left base, worse than on the pre-operative study, proba vamsi representing some post op change. No significant pneumothorax. IMPRESSION: Post op coronary artery bypass changes. No pneumothorax. Continues short term follow up. POS: [facility]
[2018-03-24] MEDS ORDERED: Magnesium 2 GM/NS 0.9% 100 ML 2 GM in Premix Bag 1 BAG IVPB SCH (14:45)
[2018-03-24] MEDS: cefTRIAXone\\ROCEPHIN 1 GM in Sodium Chloride 0.9% 100 ML IVPB SCH (14:49)
[2018-03-24] MEDS: Potassium Chloride 20 MEQ/100 ML PREMIX BAG IVPB PRN ×2 (14:49→21:27)
--- NOTE | 2018-03-24 15:41 | PDOC.CTH ---
<Re Welch - Last Filed: 03/24/18 15:37> Cardiology Progress Note - Subjective The pt seen and examined. No overnight events. S/p CABG today and tx to CCU around 1300. She is on mechanical Vent support at this moment. - Objective Vital Signs Temp Pulse Resp BP BP Pulse Ox 03/24/18 15:08 97 134/57 L 03/24/18 14:00 98.1 F 22 H 03/24/18 13:17 101 H 15 97 03/24/18 13:11 103 H 178/77 H 03/24/18 12:40 97.7 F 94 16 119/53 L 94 L 03/24/18 05:42 91 20 149/88 H 03/24/18 04:00 98.3 F 95 20 163/77 H 95 Weight 190 lb 1.6 oz 03/23/18 03/24/18 03/25/18 06:59 06:59 06:59 Intake Total 820 279 Output Total 615 Balance 820 279 -615 - Labs Result Diagrams: 03/24/18 13:01 03/24/18 13:01 Troponin/CKMB CK-MB (CK-2) 1.2 ng/mL (0-6.6) 03/17/18 17:23 Troponin I Less than 0.010 ng/mL (< 0.028) 03/18/18 01:16 - Assessment/Plan 1. CAD with s/p CABG x4 with GOETZ-LAD, RGSV-1st Diag and OM1, and RGSV-PDA - On MAIN, ASA, Lovenox, and Statin, but no BBlocker due to severe COPD 2. HTN - will resume Lisinopril 10mg qd from tomorrow AM. 3. DM type 2 - managed by PCP 4. COPD - On mechanical vent support. 5. Hx of UTI - resolved; managed by PCP 6. Current smoker - smoking cessation education given to family today MAR reviewed <Jon Gonzalez - Last Filed: 03/24/18 20:30> Cardiology Progress Note - Objective Vital Signs Temp Pulse Resp BP BP Pulse Ox 03/24/18 20:00 98.5 F 19 03/24/18 18:48 94 96/46 L 03/24/18 18:00 21 H 03/24/18 16:00 98.4 F 24 H 03/24/18 15:08 97 134/57 L 03/24/18 14:00 98.1 F 22 H 03/24/18 13:17 101 H 15 97 03/24/18 13:11 103 H 178/77 H 03/24/18 13:00 97.7 F 97 23 H 96 03/24/18 12:40 97.7 F 94 16 119/53 L 94 L Weight 190 lb 1.6 oz 03/23/18 03/24/18 03/25/18 06:59 06:59 06:59 Intake Total 820 279 638 Output Total 1105 Balance 820 279 -467 - Labs Result Diagrams: 03/24/18 19:43 03/24/18 19:43 Troponin/CKMB CK-MB (CK-2) 1.2 ng/mL (0-6.6) 03/17/18 17:23 Troponin I Less than 0.010 ng/mL (< 0.028) 03/18/18 01:16 - Assessment/Plan pt. seen and eval. by me. I agree with the A/P by the MATERIAL EXPEDITER. She did well overall during surgery. Hopefully her pulmonary status will continue to improve. Chest-diffuse wheeze. RRR
--- NOTE | 2018-03-24 16:58 | EKG ---
Test Reason : POST CABG Blood Pressure : / mmHG Vent. Rate : 095 BPM Atrial Rate : 095 BPM P-R Int : 158 ms QRS Dur : 078 ms QT Int : 390 ms P-R-T Axes : 068 -19 -17 degrees QTc Int : 490 ms Normal sinus rhythm Inferior infarct (cited on or before 17-MAR-2018)(Q's in III and aVf.) Abnormal ECG When compared with ECG of 17-MAR-2018 21:30, (Unconfirmed) Questionable change in initial forces of Inferior leads T wave inversion now evident in Inferior leads Confirmed by STONEY GARNETT ([id number]) on 03/24/2018 4:57:40 PM Referred By: VIVI Confirmed By:STONEY GARNETT
--- NOTE | 2018-03-24 19:07 | PDOC.PN ---
- Subjective Encounter Start Date: 03/24/18 Encounter Start Time: 19:05 Subjective: intubated post CABG -: care discussed w at bedside.all qs answered -: discussed w nursing.No acute vents - Objective MAR Reviewed: Yes Vital Signs & Weight: Vital Signs (12 hours) Temp Pulse Resp BP BP Pulse Ox 03/24/18 18:48 94 96/46 L 03/24/18 18:00 21 H 03/24/18 16:00 98.4 F 24 H 03/24/18 15:08 97 134/57 L 03/24/18 14:00 98.1 F 22 H 03/24/18 13:17 101 H 15 97 03/24/18 13:11 103 H 178/77 H 03/24/18 13:00 97.7 F 97 23 H 96 03/24/18 12:40 97.7 F 94 16 119/53 L 94 L Weight Weight 190 lb 1.6 oz Most Recent Monitor Data Heart Rate from ECG 93 NIBP 96/46 NIBP BP-Mean 63 Respiration from ECG 19 SpO2 96 I&O: 03/23/18 03/24/18 03/25/18 06:59 06:59 06:59 Intake Total 820 279 638 Output Total 965 Balance 820 279 -327 Result Diagrams: 03/28/18 04:39 03/28/18 04:39 Additional Labs: Accuchecks 03/24/18 03/24/18 03/24/18 18:25 15:56 15:06 POC Glucose 95 89 103 03/24/18 03/24/18 03/24/18 14:07 13:26 13:07 POC Glucose 122 H 137 H 163 H 03/24/18 03/24/18 03/24/18 12:30 11:50 11:23 POC Glucose 176 H 230 H 242 H 03/24/18 03/24/18 03/24/18 10:36 09:59 09:08 POC Glucose 283 H 262 H 284 H 03/24/18 03/24/18 03/23/18 08:10 05:56 20:51 POC Glucose 294 H 286 H 340 H Microbiology 03/17/18 17:40 Urine voided Urine Culture - Final Escherichia coli LABS REVIEWED EKG Reviewed by me: Yes (NSR on monitor) Phys Exam - Physical Examination Constitutional: NAD intubated HEENT: moist MMs, sclera anicteric Neck: no JVD Respiratory: no wheezing, no rales, no rhonchi, clear to auscultation bilateral Cardiovascular: RRR, no significant murmur Gastrointestinal: soft, no distention, positive bowel sounds Musculoskeletal: no edema, pulses present sedated Deviation from normal: sedated Skin: no rash Dx/Plan (1) Unstable angina Status: Acute (2) Chest pain Code(s): R07.9 - CHEST PAIN, UNSPECIFIED Status: Resolved Qualifiers: Chest pain type: chest pain due to myocardial ischemia Comment: s/p CABGX4 03/24/18.On ASA,MAIN-I,statin.No BB due to severe COPD (3) UTI (urinary tract infection) Status: Acute Qualifiers: Urinary tract infection type: acute cystitis Hematuria presence: without hematuria Qualified Code(s): N30.00 - Acute cystitis without hematuria Comment: resolving, (4) CAD (coronary artery disease) Code(s): I25.10 - ATHSCL HEART DISEASE OF [place] CORONARY ARTERY W/O ANG PCTRS Status: Acute Qualifiers: Coronary Disease-Associated Artery/Lesion type: [place] artery [place] vs. transplanted heart: [place] heart Comment: multivessel disease, cabg on Friday (5) COPD (chronic obstructive pulmonary disease) Status: Chronic Qualifiers: COPD type: chronic bronchitis Chronic bronchitis type: unspecified Qualified Code(s): J42 - Unspecified chronic bronchitis Comment: on ABx and steroids -changed to Po (6) DM type 2 (diabetes mellitus, type 2) Status: Chronic Qualifiers: Diabetes mellitus nursing home insulin use: without nursing home use Diabetes mellitus complication status: with hyperglycemia Qualified Code(s): E11.65 - Type 2 diabetes mellitus with hyperglycemia (7) HTN (hypertension) Code(s): I10 - ESSENTIAL (PRIMARY) HYPERTENSION Status: Chronic Qualifiers: Hypertension type: essential hypertension Qualified Code(s): I10 - Essential (primary) hypertension (8) Obesity (BMI 30.0-34.9) Code(s): E66.9 - OBESITY, UNSPECIFIED Status: Chronic (9) Tobacco abuse Code(s): Z72.0 - TOBACCO USE Status: Chronic - Plan plan discussed w/ family, continue antibiotics, PT/OT, DVT proph w/SCDs cont post-op care. HD stable. -: ETT /vent per PCCM -: cont cardio-prudent meds.monitor closely -: daily labs.gentle IVF -: IV steroids by PCCM . * . Review of Systems - Review of Systems Other: can not be obtained due to intubated and sedated status - Medications/Allergies Allergies/Adverse Reactions: Allergies Allergy/AdvReac Type Severity Reaction Status Date / Time No Known Drug Allergies Allergy Verified 03/18/18 01:00 Medications: Current Medications Acetaminophen (Tylenol) 650 mg PO Q6H PRN PRN Reason: Headache/Fever Or Mild Pain Hydrocodone Bitart/Acetaminophen ([place] 5/325) 1 tab PO Q4H PRN PRN Reason: Moderate Pain (4-6) Hydrocodone Bitart/Acetaminophen ([place] 5/325) 2 tab PO Q4H PRN PRN Reason: Severe Pain (7-10) Al Hydroxide/Mg Hydroxide (Maalox) 30 ml PO Q4H PRN PRN Reason: Indigestion Albumin Human (Albumin 5%) 12.5 gm IVPB Q6H PRN PRN Reason: To Maintain SBP> 90 mmHG Stop: 03/25/18 12:41 Albumin Human (Albumin 5%) 25 gm IVPB Q6H PRN PRN Reason: To Maintain SBP > 90 mmHG Stop: 03/25/18 12:41 Albuterol/Ipratropium (Duoneb) 3 ml NEB [id number] MARIFER Last Admin: 03/24/18 18:47 Dose: 3 ml Aspirin (Aspirin) 325 mg PO DAILY MARIFER Bisacodyl (Dulcolax) 10 mg PO Q12H PRN PRN Reason: Constipation Bisacodyl (Dulcolax) 10 mg IA Q12H PRN PRN Reason: Constipation Dextrose/Water (Dextrose 50%) 25 gm SLOW IVP PRN PRN PRN Reason: PER HYPOGLYCEMIC PROTOCOL Famotidine (Pepcid) 20 mg SLOW IVP Q12HR MARIFER Fentanyl (Sublimaze) 25 mcg SLOW IVP Q2H PRN PRN Reason: Moderate Pain (4-6) Stop: 03/26/18 12:40 Fentanyl (Sublimaze) 50 mcg SLOW IVP Q2H PRN PRN Reason: Severe Pain (7-10) Stop: 03/26/18 12:40 Glucagon (Glucagon) 1 mg SC PRN PRN PRN Reason: PER HYPOGLYCEMIC PROTOCOL Guaifenesin/Dextromethorphan (Robitussin Dm) 15 ml PO Q4H PRN PRN Reason: Cough Hydralazine HCl (Apresoline) 10 mg SLOW IVP Q6H PRN PRN Reason: To Maintain SBP< 140mmHG Dopamine HCl/Dextrose (Dopamine/D5w) 250 mls @ 0 mls/hr IVPB PRN PRN; Protocol ; Titrate PRN Reason: To maintain SBP > 90 mmHG Hetastarch/Sodium Chloride (Hespan) 500 mls @ 0 mls/hr IVPB PRN PRN; As Directed PRN Reason: To Maintain SBP > 90mmHg Stop: 03/25/18 12:40 Nicardipine HCl 25 mg/ Sodium (Chloride) 250 mls @ 0 mls/hr IVPB INF PRN; Protocol; Titrate PRN Reason: To Maintain SBP< 140mmHG Nitroglycerin/Dextrose (Nitroglycerin 50 Mg/250 Ml Bot) 250 mls @ 0 mls/hr IVPB PRN PRN; Protocol; Titrate PRN Reason: To Maintain SBP< 140mmHG Sodium Chloride (Normal Saline 0.9%) 1,000 mls @ 75 mls/hr IV .[id number] [facility] Last Admin: 03/24/18 13:37 Dose: 1,000 mls Insulin Human Regular 100 (units/ Sodium Chloride) 101 mls @ 0 mls/hr IVPB INF MARIFER; As Directed PRN Reason: Protocol Last Admin: 03/24/18 14:46 Dose: 101 mls Dextrose/Water (D5w) 1,000 mls @ 0 mls/hr IV INF PRN; As Directed PRN Reason: PRN HYPOGLYCEMIC PROTOCOL Ceftriaxone Sodium 1 gm/ (Sodium Chloride) 100 mls @ 200 mls/hr IVPB Q24HR [facility] Last Admin: 03/24/18 14:49 Dose: 100 mls Insulin Human Regular (Humulin R) 0 units SC Q4H PRN; Protocol PRN Reason: POST OP SLIDING SCALE Lisinopril (Zestril) 5 mg PO DAILY [facility] Methylprednisolone Sodium Succinate (Solu-Medrol) 40 mg IVP Q6HR [facility] Last Admin: 03/24/18 17:24 Dose: 40 mg Morphine Sulfate (Morphine Sulfate) 2 mg SLOW IVP Q15MIN PRN PRN Reason: Severe Pain (7-10) Last Admin: 03/24/18 17:25 Dose: 2 mg Ondansetron HCl (Zofran) 4 mg IVP Q6H PRN PRN Reason: Nausea/Vomiting Potassium Chloride (Kcl) 20 meq IVPB PRN PRN PRN Reason: K level </= 4.0 Last Admin: 03/24/18 14:49 Dose: 20 meq Promethazine HCl (Phenergan) 6.25 mg IM Q4H PRN PRN Reason: Nausea/Vomiting Propofol (Diprivan) 1,000 mg IV INF PRN PRN Reason: SEDATION Rosuvastatin Calcium (Crestor) 20 mg PO HS MARIFER Sodium Chloride (Flush - Normal Saline) 10 ml IVF Q12HR MARIFER Sodium Chloride (Flush - Normal Saline) 10 ml IVF PRN PRN PRN Reason: Saline Flush
[2018-03-24 19:54] LABS: Hemoglobin 11.8 g/dL (12.0-16.0)
[2018-03-24 20:06] LABS: Potassium 3.5 mmol/L (3.5-5.1)
[2018-03-24] MEDS: Famotidine/PF 20 mg/2ml Vial SLOW IVP SCH (21:27)
[2018-03-24] MEDS: Rosuvastatin 20 MG TAB PO SCH (21:27)
[2018-03-25] MEDS: Fentanyl 100 MCG/2 ML VIAL SLOW IVP PRN ×7 (00:46→18:08)
[2018-03-25] MEDS: Sodium Chloride 0.9% 1,000 ML IV SCH ×2 (01:35→14:06)
--- NOTE | 2018-03-25 01:59 | PRG ---
DATE OF SERVICE: 03/24/2018 SUBJECTIVE: This morning, she is in the ICU, back on the vent. OBJECTIVE: VITAL SIGNS: Postop sats are 94%, pulse 95, blood pressure 120/80 on the A- line. CHEST: With diffuse wheezing. CARDIAC: Sinus tachycardia. ABDOMEN: Soft, no masses. LABORATORY DATA: White count 26,000, H and H 11 and 32, platelet count of 136, pO2 is 77, pCO2 45__ , 600 tidal volume. Her electrolytes are normal. X-ray, post-surgery, shows a left-sided pleural effusion.otherwise unremarkable. IMPRESSION: 1. Ongoing tobacco. 2. Chronic obstructive pulmonary disease. 3. Coronary artery disease, status post coronary artery bypass graft. 4. Left pleural effusion. 5. Severe deconditioning. PLAN: Weaning protocol. Continue neb treatments, steroids, supportive care, empiric antibiotics. We will follow. One-half hour critical care time. LAVINIA
[2018-03-25 05:17] LABS: Anion Gap 12 mmol/L (10-20); BUN (Urea Nitrogen) 12 mg/dL (9.8-20.1); Calc. Creatinine Clearance 151 mL/min (70-130); Calcium 7.9 mg/dL (7.8-10.44); Carbon Dioxide 23 mmol/L (23-31); Chloride 108 mmol/L (98-107); Estimated GFR-MDRD Greater than 90; Glucose 96 mg/dL (80-115); Potassium 4.2 mmol/L (3.5-5.1); Sodium 139 mmol/L (136-145)
[2018-03-25 05:39] LABS: Band 13 % (5-11); Hemoglobin 12.2 g/dL (12.0-16.0); Lymphocytes 15 % (21-51); MDiff Complete? YES; Mean Corpuscular Hemoglobin 34.2 pg (27.0-31.0); Mean Platelet Volume 8.9 fL (7.4-10.4); Monocytes 7 % (0-10); Neutrophil 65 % (42-75); Platelet Count 136 thou/uL (130-400); RBC Distribution Width 12.1 % (11.5-14.5); Red Blood Cell (RBC) Count 3.59 mill/uL (4.20-5.40); White Blood Cell (WBC) Count 14.5 thou/uL (4.8-10.8)
[2018-03-25] MEDS ORDERED: DC Sedation Protocol FS ONE (08:04)
[2018-03-25] MEDS: Aspirin 325 MG TAB PO SCH (08:15)
[2018-03-25] MEDS: Lisinopril 5 MG TAB PO SCH (08:15)
[2018-03-25] MEDS: HYDROcodone/Acetaminophen 5/325 mg Tablet PO PRN ×4 (08:15→19:40)
[2018-03-25] MEDS: Famotidine/PF 20 mg/2ml Vial SLOW IVP SCH ×2 (08:16→20:43)
--- NOTE | 2018-03-25 08:23 | PRG ---
DATE OF SERVICE: 03/25/2018 This morning, awake, alert, responsive on CPAP. She is in no distress. PHYSICAL EXAMINATION: VITAL SIGNS: Respirations 25, blood pressure 136/84, temperature 99, sats are 94%. GENERAL: She is awake, responsive, moves all 4 extremities. CHEST: Chest reveals decreased breath sounds, minimal wheezing. CARDIAC: Normal S1, S2, no gallops. ABDOMEN: Soft. X-ray shows a left-sided pleural effusion. Right lower atelectasis. White count 14,000, H&H 12 and 36, platelet count 136. Electrolytes are normal. IMPRESSION: 1. Chronic obstructive pulmonary disease. 2. Tobacco abuse. 3. Status post coronary artery bypass graft. PLAN: She will be weaned and extubated. Continue IV antibiotics, nebulizer treatments, steroids. We will follow. One-half hour critical care time.
--- NOTE | 2018-03-25 08:50 | RAD ---
PORTABLE CHEST: History: Post op open heart surgery. Comparison: 03-24-18 FINDINGS: Endotracheal and NG tubes are in satisfactory position. Right chest remains in place. There is atelec tatic change in the left lower lobe. There is opacification developing in the right lower lobe which could represent atelectasis or possibly some fluid within the fissure. IMPRESSION: Development of some parenchymal density in the right lung base which could be atelectasis or fluid lo culated in a fissure. POS: [facility]
[2018-03-25] MEDS: Ketorolac Tromethamine 30 MG/ML VIAL IVP SCH ×3 (09:27→20:40)
[2018-03-25] MEDS ORDERED: Insulin Glargine 18 UNITS in Pre-Filled Syringe 1 EACH SC SCH (11:00)
--- NOTE | 2018-03-25 11:46 | PDOC.CTH ---
<Re Welch - Last Filed: 03/25/18 11:44> Cardiology Progress Note - Subjective the pt seen and examined. No overnight events. No cardiac complaints. Only complaint she has now is pain at surgical site. - Objective Vital Signs Temp Pulse Resp BP Pulse Ox 03/25/18 08:15 99 F 109 H 23 H 136/84 93 L 03/25/18 08:00 90 23 H 95 03/25/18 07:13 109 H 136/84 03/25/18 07:10 100 25 H 95 03/25/18 07:00 99 F 03/25/18 06:00 19 03/25/18 04:00 98.9 F 20 03/25/18 02:40 105 H 97/73 03/25/18 02:00 16 03/25/18 00:00 98.9 F 19 Weight 185 lb 3.013 oz 03/24/18 03/25/18 03/26/18 06:59 06:59 06:59 Intake Total 279 1705 Output Total 1795 315 Balance 279 -90 -315 - Physical Examination General/Neuro: alert & oriented x3 Neck: no JVD present Lungs: other: (coarse and very diminished at bases) Heart: RRR Abdomen: soft Extremities: other: (No edema) - Telemetry Telemetry Rhythm: [id number] - Labs Result Diagrams: 03/25/18 04:51 03/25/18 04:51 Troponin/CKMB CK-MB (CK-2) 1.2 ng/mL (0-6.6) 03/17/18 17:23 Troponin I Less than 0.010 ng/mL (< 0.028) 03/18/18 01:16 - Assessment/Plan 1. CAD with s/p CABG x4 with GOETZ-LAD, RGSV-1st Diag and OM1, and RGSV-PDA - On MAIN, ASA, Lovenox, and Statin. Start Coreg 3.125mg BID for tachycardia. However, may stop it due to severe COPD 2. HTN - Start Coreg 3.125mg BID for tachycardia. However, may stop it due to severe COPD 3. DM type 2 - On Insulin drip; managed by CV surgeon 4. COPD - On NC; 5. Hx of UTI - resolved; managed by PCP 6. Current smoker - smoking cessation education given to family today MAR reviewed Review of Systems - Review of Systems Constitutional: reports: no symptoms reported EENTM: reports: no symptoms reported Respiratory: reports: no symptoms reported Cardiac (ROS): reports: no symptoms reported ABD/GI: reports: no symptoms reported : reports: no symptoms reported Musculoskeletal: reports: no symptoms reported Skin: reports: see HPI <Jon Gonzalez - Last Filed: 03/25/18 19:28> Cardiology Progress Note - Objective Vital Signs Temp Pulse Resp BP Pulse Ox 03/25/18 19:06 95 26 H 93 L 03/25/18 16:00 98 F 03/25/18 12:53 96 17 96 03/25/18 12:00 99 F 03/25/18 08:15 99 F 109 H 23 H 136/84 93 L 03/25/18 08:00 90 23 H 95 Weight 185 lb 3.013 oz 03/24/18 03/25/18 03/26/18 06:59 06:59 06:59 Intake Total 279 1705 1450 Output Total 1795 945 Balance 279 -90 505 - Labs Result Diagrams: 03/25/18 04:51 03/25/18 04:51 Troponin/CKMB CK-MB (CK-2) 1.2 ng/mL (0-6.6) 03/17/18 17:23 Troponin I Less than 0.010 ng/mL (< 0.028) 03/18/18 01:16 - Assessment/Plan Pt. seen and eval. by me. I agree with the A/P by the SENIOR SQL SERVER DBA. She has had some pain today but denies any at this time. Chest: diffuse wheeze. CV: RRR. No edema. Stable cardiac status post CABG.
[2018-03-25] MEDS ORDERED: Carvedilol 3.125 MG TAB PO SCH (12:00)
[2018-03-25] MEDS: cefTRIAXone\\ROCEPHIN 1 GM in Sodium Chloride 0.9% 100 ML IVPB SCH (14:05)
[2018-03-25] MEDS: Insulin Regular 300 UNITS/3 ML VIAL SC PRN ×2 (15:33→20:44)
[2018-03-25] MEDS: Carvedilol 3.125 MG TAB PO SCH (16:21)
--- NOTE | 2018-03-25 16:39 | PDOC.PN ---
- Subjective Encounter Start Date: 03/25/18 Encounter Start Time: 16:38 Subjective: c/p pain at surgical site despita multiple pain meds -: no overnight events. -: extubated successfully this morning - Objective MAR Reviewed: Yes Vital Signs & Weight: Vital Signs (12 hours) Temp Pulse Resp BP Pulse Ox 03/25/18 12:53 96 17 96 03/25/18 12:00 99 F 03/25/18 08:15 99 F 109 H 23 H 136/84 93 L 03/25/18 08:00 90 23 H 95 03/25/18 07:13 109 H 136/84 03/25/18 07:10 100 25 H 95 03/25/18 07:00 99 F 03/25/18 06:00 19 Weight Weight 185 lb 3.013 oz Most Recent Monitor Data Heart Rate from ECG 101 NIBP 93/81 NIBP BP-Mean 92 Respiration from ECG 24 SpO2 97 I&O: 03/24/18 03/25/18 03/26/18 06:59 06:59 06:59 Intake Total 279 1705 1000 Output Total 1795 735 Balance 279 -90 265 Result Diagrams: 03/28/18 04:39 03/28/18 04:39 Additional Labs: Accuchecks 03/25/18 03/25/18 03/25/18 15:10 11:43 09:30 POC Glucose 209 H 119 H 118 H 03/25/18 03/25/18 03/25/18 08:15 07:09 06:11 POC Glucose 106 88 99 03/25/18 03/25/18 03/25/18 05:21 04:26 03:45 POC Glucose 104 103 99 03/25/18 03/25/18 03/25/18 02:27 01:35 00:43 POC Glucose 105 96 100 03/24/18 03/24/18 03/24/18 23:27 22:32 21:38 POC Glucose 104 90 95 03/24/18 03/24/18 03/24/18 20:28 19:45 18:25 POC Glucose 119 H 103 95 Phys Exam - Physical Examination Constitutional: NAD HEENT: PERRLA, moist MMs, sclera anicteric, oral pharynx no lesions Neck: no nodes, no JVD, supple, full ROM Respiratory: no wheezing, no rales, no rhonchi, clear to auscultation bilateral Cardiovascular: RRR, no significant murmur, no rub Gastrointestinal: soft, non-tender, no distention, positive bowel sounds Musculoskeletal: no edema, pulses present Neurological: non-focal, normal sensation, moves all 4 limbs Psychiatric: normal affect, A&O x 3 Skin: no rash Dx/Plan (1) Unstable angina Status: Acute (2) Chest pain Code(s): R07.9 - CHEST PAIN, UNSPECIFIED Status: Resolved Qualifiers: Chest pain type: chest pain due to myocardial ischemia Comment: s/p CABGX4 03/24/18.On ASA,MAIN-I,statin.No BB due to severe COPD (3) UTI (urinary tract infection) Status: Acute Qualifiers: Urinary tract infection type: acute cystitis Hematuria presence: without hematuria Qualified Code(s): N30.00 - Acute cystitis without hematuria Comment: resolving, (4) CAD (coronary artery disease) Code(s): I25.10 - ATHSCL HEART DISEASE OF [place] CORONARY ARTERY W/O ANG PCTRS Status: Acute Qualifiers: Coronary Disease-Associated Artery/Lesion type: [place] artery [place] vs. transplanted heart: [place] heart Comment: multivessel disease, cabg on Friday (5) COPD (chronic obstructive pulmonary disease) Status: Chronic Qualifiers: COPD type: chronic bronchitis Chronic bronchitis type: unspecified Qualified Code(s): J42 - Unspecified chronic bronchitis Comment: on ABx and steroids -changed to Po (6) DM type 2 (diabetes mellitus, type 2) Status: Chronic Qualifiers: Diabetes mellitus penitentiary insulin use: without penitentiary use Diabetes mellitus complication status: with hyperglycemia Qualified Code(s): E11.65 - Type 2 diabetes mellitus with hyperglycemia (7) HTN (hypertension) Code(s): I10 - ESSENTIAL (PRIMARY) HYPERTENSION Status: Chronic Qualifiers: Hypertension type: essential hypertension Qualified Code(s): I10 - Essential (primary) hypertension (8) Obesity (BMI 30.0-34.9) Code(s): E66.9 - OBESITY, UNSPECIFIED Status: Chronic (9) Tobacco abuse Code(s): Z72.0 - TOBACCO USE Status: Chronic - Plan lilly catheter, continue antibiotics, PT/OT, respiratory therapy, incentive spirometry, out of bed/ambulate, DVT proph w/SCDs s/p 4 vessel CABG.cont post-op care.pain meds adjusted -: add xanax for anxiety -: cont ASA,MAIN-I,statin.coreg for tachycardia -: nebs,o2 prn,iv steroids. -: supportive care.daily labs.clinically better * . Review of Systems - Review of Systems Constitutional: weakness, malaise, other (pain) Respiratory: negative: Cough, Dry, Shortness of Breath, Hemoptysis, SOB with Excertion, Pleuritic Pain, Sputum, Wheezing Cardiovascular: negative: chest pain, palpitations, orthopnea, paroxysmal nocturnal dyspnea, edema, light headedness, other Gastrointestinal: negative: Nausea, Vomiting, Abdominal Pain, Diarrhea, Constipation, Melena, Hematochezia, Other Genitourinary: negative: Dysuria, Frequency, Incontinence, Hematuria, Retention , Other Musculoskeletal: negative: Neck Pain, Shoulder Pain, Arm Pain, Back Pain, Hand Pain, Leg Pain, Foot Pain, Other Skin: negative: Rash, Lesions, [place], Bruising, Other Neurological: negative: Weakness, Numbness, Incoordination, Change in Speech, Confusion, Seizures, Other - Medications/Allergies Allergies/Adverse Reactions: Allergies Allergy/AdvReac Type Severity Reaction Status Date / Time No Known Drug Allergies Allergy Verified 03/18/18 01:00 Medications: Current Medications Acetaminophen (Tylenol) 650 mg PO Q6H PRN PRN Reason: Headache/Fever Or Mild Pain Hydrocodone Bitart/Acetaminophen ([place] 5/325) 1 tab PO Q4H PRN PRN Reason: Moderate Pain (4-6) Hydrocodone Bitart/Acetaminophen ([place] 5/325) 2 tab PO Q4H PRN PRN Reason: Severe Pain (7-10) Last Admin: 03/25/18 15:08 Dose: 2 tab Al Hydroxide/Mg Hydroxide (Maalox) 30 ml PO Q4H PRN PRN Reason: Indigestion Albuterol/Ipratropium (Duoneb) 3 ml NEB [id number] [facility] Last Admin: 03/25/18 12:53 Dose: 3 ml Alprazolam (Xanax) 0.5 mg PO Q4H PRN PRN Reason: Anxiety Aspirin (Aspirin) 325 mg PO DAILY [facility] Last Admin: 03/25/18 08:15 Dose: 325 mg Bisacodyl (Dulcolax) 10 mg PO Q12H PRN PRN Reason: Constipation Bisacodyl (Dulcolax) 10 mg MD Q12H PRN PRN Reason: Constipation Carvedilol (Coreg) 3.125 mg PO BID-[facility] Last Admin: 03/25/18 16:21 Dose: 3.125 mg Dextrose/Water (Dextrose 50%) 25 gm SLOW IVP PRN PRN PRN Reason: PER HYPOGLYCEMIC PROTOCOL Famotidine (Pepcid) 20 mg SLOW IVP Q12HR [facility] Last Admin: 03/25/18 08:16 Dose: 20 mg Fentanyl (Sublimaze) 25 mcg SLOW IVP Q2H PRN PRN Reason: Moderate Pain (4-6) Stop: 03/26/18 12:40 Fentanyl (Sublimaze) 50 mcg SLOW IVP Q2H PRN PRN Reason: Severe Pain (7-10) Stop: 03/26/18 12:40 Last Admin: 03/25/18 16:21 Dose: 50 mcg Glucagon (Glucagon) 1 mg SC PRN PRN PRN Reason: PER HYPOGLYCEMIC PROTOCOL Guaifenesin/Dextromethorphan (Robitussin Dm) 15 ml PO Q4H PRN PRN Reason: Cough Hydralazine HCl (Apresoline) 10 mg SLOW IVP Q6H PRN PRN Reason: To Maintain SBP< 140mmHG Dopamine HCl/Dextrose (Dopamine/D5w) 250 mls @ 0 mls/hr IVPB PRN PRN; Protocol ; Titrate PRN Reason: To maintain SBP > 90 mmHG Nicardipine HCl 25 mg/ Sodium (Chloride) 250 mls @ 0 mls/hr IVPB INF PRN; Protocol; Titrate PRN Reason: To Maintain SBP< 140mmHG Nitroglycerin/Dextrose (Nitroglycerin 50 Mg/250 Ml Bot) 250 mls @ 0 mls/hr IVPB PRN PRN; Protocol; Titrate PRN Reason: To Maintain SBP< 140mmHG Sodium Chloride (Normal Saline 0.9%) 1,000 mls @ 75 mls/hr IV .[id number] [facility] Last Admin: 03/25/18 14:06 Dose: Not Given Insulin Human Regular 100 (units/ Sodium Chloride) 101 mls @ 0 mls/hr IVPB INF [facility]; As Directed PRN Reason: Protocol Last Admin: 03/24/18 14:46 Dose: 101 mls Dextrose/Water (D5w) 1,000 mls @ 0 mls/hr IV INF PRN; As Directed PRN Reason: PRN HYPOGLYCEMIC PROTOCOL Ceftriaxone Sodium 1 gm/ (Sodium Chloride) 100 mls @ 200 mls/hr IVPB Q24HR [facility] Last Admin: 03/25/18 14:05 Dose: 100 mls Insulin Human Regular (Humulin R) 0 units SC Q4H PRN; Protocol PRN Reason: POST OP SLIDING SCALE Last Admin: 03/25/18 15:33 Dose: 6 unit Ketorolac Tromethamine (Toradol) 30 mg IVP Q6H [facility] Stop: 03/26/18 09:01 Last Admin: 03/25/18 14:07 Dose: 30 mg Lisinopril (Zestril) 5 mg PO DAILY [facility] Last Admin: 03/25/18 08:15 Dose: 5 mg Methylprednisolone Sodium Succinate (Solu-Medrol) 40 mg IVP BID [facility] Last Admin: 03/25/18 08:20 Dose: 40 mg Morphine Sulfate (Morphine Sulfate) 2 mg SLOW IVP Q15MIN PRN PRN Reason: Severe Pain (7-10) Last Admin: 03/25/18 03:47 Dose: 2 mg Ondansetron HCl (Zofran) 4 mg IVP Q6H PRN PRN Reason: Nausea/Vomiting Potassium Chloride (Kcl) 20 meq IVPB PRN PRN PRN Reason: K level </= 4.0 Last Admin: 03/24/18 21:27 Dose: 20 meq Promethazine HCl (Phenergan) 6.25 mg IM Q4H PRN PRN Reason: Nausea/Vomiting Rosuvastatin Calcium (Crestor) 20 mg PO HS [facility] Last Admin: 03/24/18 21:27 Dose: Not Given Sodium Chloride (Flush - Normal Saline) 10 ml IVF Q12HR [facility] Last Admin: 03/25/18 08:16 Dose: 10 ml Sodium Chloride (Flush - Normal Saline) 10 ml IVF PRN PRN PRN Reason: Saline Flush
[2018-03-25] MEDS: Rosuvastatin 20 MG TAB PO SCH (20:40)
[2018-03-25] MEDS: ALPRAZolam 0.5 MG TAB PO PRN (20:43)
[2018-03-26] MEDS: Fentanyl 100 MCG/2 ML VIAL SLOW IVP PRN ×2 (00:18→07:15)
[2018-03-26] MEDS: Ketorolac Tromethamine 30 MG/ML VIAL IVP SCH ×2 (03:11→09:15)
[2018-03-26] MEDS: HYDROcodone/Acetaminophen 5/325 mg Tablet PO PRN ×4 (04:22→20:13)
[2018-03-26] MEDS: Sodium Chloride 0.9% 1,000 ML IV SCH ×2 (04:22→16:44)
[2018-03-26 04:59] LABS: #Lymphocytes 1.6 thou/uL (1.20-3.40); #Monocytes 1.1 thou/uL (0.11-0.59); #Neutrophils 12.4 thou/uL (1.40-6.50); %Basophils 0.1 % (0.0-1.0); %Eosinophils 0.1 % (0.0-10.0); %Lymphocytes 10.6 % (21.0-51.0); %Monocytes 7.3 % (0.0-10.0); %Neutrophils 81.9 % (42.0-75.0); Hemoglobin 10.8 g/dL (12.0-16.0); Mean Corpuscular HGB CONC 33.3 g/dL (32.0-36.0); Mean Corpuscular Hemoglobin 33.7 pg (27.0-31.0); Mean Platelet Volume 8.8 fL (7.4-10.4); Platelet Count 124 thou/uL (130-400); RBC Distribution Width 12.1 % (11.5-14.5); Red Blood Cell (RBC) Count 3.22 mill/uL (4.20-5.40); White Blood Cell (WBC) Count 15.2 thou/uL (4.8-10.8)
[2018-03-26 05:07] LABS: Anion Gap 8 mmol/L (10-20); BUN (Urea Nitrogen) 18 mg/dL (9.8-20.1); Calc. Creatinine Clearance 129 mL/min (70-130); Calcium 8.3 mg/dL (7.8-10.44); Carbon Dioxide 29 mmol/L (23-31); Chloride 105 mmol/L (98-107); Estimated GFR-MDRD Greater than 90; Glucose 219 mg/dL (80-115); Potassium 3.7 mmol/L (3.5-5.1); Sodium 138 mmol/L (136-145)
[2018-03-26] MEDS: Insulin Regular 300 UNITS/3 ML VIAL SC PRN ×4 (06:06→20:15)
[2018-03-26] MEDS ORDERED: Metolazone 5 MG TAB PO SCH (07:15)
--- NOTE | 2018-03-26 08:12 | RAD ---
PORTABLE SEMIUPRIGHT FRONTAL CHEST RADIOGRAPH: DATE: 03/26/18. COMPARISON: 03/25/18. HISTORY: Evaluate chest following open heart surgery. FINDINGS: The endotracheal tube and nasogastric tube have been removed since the prior exam. Small volume gas within the soft tissues of the neck seen on the prior examination no longer visualized. Postsurgical drainage catheters overlie right hemithorax and lower mediastinum. Midline sternotomy wires and lef t-sided vascular catheter unchanged. Nonspecific increased density noted in both lung bases, left gr eater than right. IMPRESSION: Postoperative changes as above. Nonspecific increased density in both lung bases, for which followup is advised. POS: DANGELO
--- NOTE | 2018-03-26 08:15 | PRG ---
DATE OF SERVICE: 03/26/2018 This morning she is still complaining of some pain, unclear why she is doing that, but she definitely less short of breath, less wheezing. X-ray looks stable. There is a chest tube which was removed. PHYSICAL EXAMINATION: VITAL SIGNS: Blood pressure 125/90, sats 92% on 2 liters, temperature 98.3, respiration rate 18. CHEST: Chest reveals decreased breath sounds, occasional wheeze. CARDIAC: Normal S1, S2. ABDOMEN: Soft, no masses. LABORATORY DATA: White count 15,000, H&H is unremarkable. Platelet count normal. IMPRESSION: 1. Severe chronic obstructive pulmonary disease. 2. Tobacco abuse. 3. Status post coronary artery bypass graft. PLAN: Switch her over to oral medication, PT, supportive care, eventually transferred out of the ICU . I will follow.
[2018-03-26] MEDS: Lisinopril 5 MG TAB PO SCH (08:32)
[2018-03-26] MEDS: Aspirin 325 MG TAB PO SCH (08:33)
[2018-03-26] MEDS: Cefdinir 300 MG CAP PO SCH ×2 (08:33→20:13)
[2018-03-26] MEDS: Carvedilol 3.125 MG TAB PO SCH ×2 (08:33→16:39)
[2018-03-26] MEDS: Famotidine 20 MG TAB PO SCH ×2 (08:35→20:13)
--- NOTE | 2018-03-26 08:52 | PDOC.CTH ---
Cardiology Progress Note - Subjective The pt seen and examined. No overnight events. No cardiac complaints. She has been up to chair yesterday. CTs were d/louie this AM. - Objective Vital Signs Temp Pulse Resp BP Pulse Ox 03/26/18 08:32 97 109/73 03/26/18 08:05 95 03/26/18 08:03 88 22 H 95 03/26/18 08:00 98.3 F 88 22 H 94 L 03/26/18 07:00 98.3 F 03/26/18 04:00 98.4 F 03/26/18 00:01 99 22 H 93 L 03/26/18 00:00 98.5 F Weight 186 lb 1.122 oz 03/25/18 03/26/18 03/27/18 06:59 06:59 06:59 Intake Total 1705 1810 Output Total 1795 1480 70 Balance -90 330 -70 - Physical Examination General/Neuro: alert & oriented x3 Neck: no JVD present Lungs: other: (wheezing) Heart: RRR Abdomen: soft Extremities: other: (No edema; surgical sites are clear) - Telemetry Telemetry Rhythm: SR 80-90s - Labs Result Diagrams: 03/26/18 04:46 03/26/18 04:46 Troponin/CKMB CK-MB (CK-2) 1.2 ng/mL (0-6.6) 03/17/18 17:23 Troponin I Less than 0.010 ng/mL (< 0.028) 03/18/18 01:16 - Assessment/Plan 1. CAD with s/p CABG x4 with GOETZ-LAD, RGSV-PDA, and RGSV-1st Diag and OM1 - stable; On MAIN, ASA, Bblocker, Lovenox, and Statin. 2. HTN - stable with current medicaiton; cont. to monitor 3. DM type 2 - On ACHS glucose check with Insulin SS. Managed by CV surgeon 4. COPD - On NC; 5. Hx of UTI - resolved; managed by PCP 6. Current smoker - smoking cessation education given to family today. MAR reviewed Review of Systems - Review of Systems Constitutional: reports: weakness EENTM: reports: no symptoms reported Respiratory: reports: SOB with excertion Cardiac (ROS): reports: no symptoms reported ABD/GI: reports: no symptoms reported : reports: no symptoms reported
[2018-03-26] MEDS: Furosemide 40 MG/4 ML VIAL SLOW IVP SCH ×2 (09:11→13:46)
[2018-03-26] MEDS ORDERED: Furosemide 40 MG/4 ML VIAL SLOW IVP SCH (09:15)
[2018-03-26] MEDS: Potassium Chloride 20 MEQ/100 ML PREMIX BAG IVPB PRN (10:23)
--- NOTE | 2018-03-26 12:51 | PDOC.PN ---
- Subjective Encounter Start Date: 03/26/18 Encounter Start Time: 12:49 Subjective: feels much better today.pain under control -: chest tubes reomved -: mild cough - Objective MAR Reviewed: Yes Vital Signs & Weight: Vital Signs (12 hours) Temp Pulse Resp BP Pulse Ox 03/26/18 12:46 89 20 03/26/18 08:32 97 109/73 03/26/18 08:05 95 03/26/18 08:03 88 22 H 95 03/26/18 08:00 98.3 F 88 22 H 94 L 03/26/18 07:00 98.3 F 03/26/18 04:00 98.4 F Weight Weight 186 lb 1.122 oz Most Recent Monitor Data Heart Rate from ECG 90 NIBP 81/56 NIBP BP-Mean 63 Respiration from ECG 20 SpO2 95 I&O: 03/25/18 03/26/18 03/27/18 06:59 06:59 06:59 Intake Total 1705 1810 480 Output Total 1795 1480 720 Balance -90 330 -240 Result Diagrams: 03/28/18 04:39 03/28/18 04:39 Additional Labs: Accuchecks 03/26/18 03/25/18 03/25/18 11:09 20:41 15:10 POC Glucose 259 H 161 H 209 H Microbiology 03/17/18 17:40 Urine voided Urine Culture - Final Escherichia coli Phys Exam - Physical Examination Constitutional: NAD HEENT: PERRLA, moist MMs, sclera anicteric, oral pharynx no lesions Neck: no nodes, no JVD, supple, full ROM Respiratory: no wheezing, no rales, no rhonchi, wheezing present, clear to auscultation bilateral Cardiovascular: RRR, no significant murmur, no rub surigical scar well healing Gastrointestinal: soft, non-tender, no distention, positive bowel sounds Musculoskeletal: no edema, pulses present Neurological: non-focal, normal sensation, moves all 4 limbs Psychiatric: normal affect, A&O x 3 Skin: no rash Dx/Plan (1) Unstable angina Status: Acute (2) Chest pain Code(s): R07.9 - CHEST PAIN, UNSPECIFIED Status: Resolved Qualifiers: Chest pain type: chest pain due to myocardial ischemia Comment: s/p CABGX4 6/12/18.On ASA,MAIN-I,statin.No BB due to severe COPD (3) UTI (urinary tract infection) Status: Acute Qualifiers: Urinary tract infection type: acute cystitis Hematuria presence: without hematuria Qualified Code(s): N30.00 - Acute cystitis without hematuria Comment: resolving, (4) Thrombocytopenia Code(s): D69.6 - THROMBOCYTOPENIA, UNSPECIFIED Status: Acute (5) CAD (coronary artery disease) Code(s): I25.10 - ATHSCL HEART DISEASE OF [place] CORONARY ARTERY W/O ANG PCTRS Status: Acute Qualifiers: Coronary Disease-Associated Artery/Lesion type: [place] artery [place] vs. transplanted heart: [place] heart Comment: multivessel disease, cabg on Friday (6) COPD (chronic obstructive pulmonary disease) Status: Chronic Qualifiers: COPD type: chronic bronchitis Chronic bronchitis type: unspecified Qualified Code(s): J42 - Unspecified chronic bronchitis Comment: on ABx and steroids -changed to Po (7) DM type 2 (diabetes mellitus, type 2) Status: Chronic Qualifiers: Diabetes mellitus retirement insulin use: without retirement use Diabetes mellitus complication status: with hyperglycemia Qualified Code(s): E11.65 - Type 2 diabetes mellitus with hyperglycemia (8) HTN (hypertension) Code(s): I10 - ESSENTIAL (PRIMARY) HYPERTENSION Status: Chronic Qualifiers: Hypertension type: essential hypertension Qualified Code(s): I10 - Essential (primary) hypertension (9) Obesity (BMI 30.0-34.9) Code(s): E66.9 - OBESITY, UNSPECIFIED Status: Chronic (10) Tobacco abuse Code(s): Z72.0 - TOBACCO USE Status: Chronic (11) Leucocytosis Code(s): D72.829 - ELEVATED WHITE BLOOD CELL COUNT, UNSPECIFIED Status: Acute Comment: nadir[place] reactive post op.monitor - Plan continue antibiotics, PT/OT, respiratory therapy, incentive spirometry, out of bed/ambulate, DVT proph w/SCDs cont post-op care. lasix and zaroxolyn today.monitor I/Os -: cont ASA,statin,BB,MAIN-I. -: avoid heparin/lovenox as platelet count low today. -: am labs.hemodynamically stable. * . Review of Systems - Review of Systems Constitutional: weakness, malaise. negative: fever, chills, sweats, other ENT: negative: Ear Pain, Ear Discharge, Nose Pain, Nose Discharge, Nose Congestion, Mouth Pain, Mouth Swelling, Throat Pain, Throat Swelling, Other Respiratory: Cough. negative: Dry, Shortness of Breath, Hemoptysis, SOB with Excertion, Pleuritic Pain, Sputum, Wheezing Cardiovascular: negative: chest pain, palpitations, orthopnea, paroxysmal nocturnal dyspnea, edema, light headedness, other Gastrointestinal: negative: Nausea, Vomiting, Abdominal Pain, Diarrhea, Constipation, Melena, Hematochezia, Other Genitourinary: negative: Dysuria, Frequency, Incontinence, Hematuria, Retention , Other Musculoskeletal: negative: Neck Pain, Shoulder Pain, Arm Pain, Back Pain, Hand Pain, Leg Pain, Foot Pain, Other Skin: negative: Rash, Lesions, [place], Bruising, Other Neurological: negative: Weakness, Numbness, Incoordination, Change in Speech, Confusion, Seizures, Other - Medications/Allergies Allergies/Adverse Reactions: Allergies Allergy/AdvReac Type Severity Reaction Status Date / Time No Known Drug Allergies Allergy Verified 03/18/18 01:00 Medications: Current Medications Acetaminophen (Tylenol) 650 mg PO Q6H PRN PRN Reason: Headache/Fever Or Mild Pain Hydrocodone Bitart/Acetaminophen ([place] 5/325) 1 tab PO Q4H PRN PRN Reason: Moderate Pain (4-6) Hydrocodone Bitart/Acetaminophen ([place] 5/325) 2 tab PO Q4H PRN PRN Reason: Severe Pain (7-10) Last Admin: 03/26/18 10:23 Dose: 2 tab Al Hydroxide/Mg Hydroxide (Maalox) 30 ml PO Q4H PRN PRN Reason: Indigestion Albuterol/Ipratropium (Duoneb) 3 ml NEB [id number] [facility] Last Admin: 03/26/18 12:46 Dose: 3 ml Alprazolam (Xanax) 0.5 mg PO Q4H PRN PRN Reason: Anxiety Last Admin: 03/25/18 20:43 Dose: 0.5 mg Aspirin (Aspirin) 325 mg PO DAILY [facility] Last Admin: 03/26/18 08:33 Dose: 325 mg Bisacodyl (Dulcolax) 10 mg PO Q12H PRN PRN Reason: Constipation Bisacodyl (Dulcolax) 10 mg [place] Q12H PRN PRN Reason: Constipation Carvedilol (Coreg) 3.125 mg PO BID-[facility] Last Admin: 03/26/18 08:33 Dose: 3.125 mg Cefdinir (Omnicef) 300 mg PO BID [facility] Stop: 03/31/18 09:01 Last Admin: 03/26/18 08:33 Dose: 300 mg Dextrose/Water (Dextrose 50%) 25 gm SLOW IVP PRN PRN PRN Reason: PER HYPOGLYCEMIC PROTOCOL Famotidine (Pepcid) 20 mg PO BID [facility] Last Admin: 03/26/18 08:35 Dose: 20 mg Furosemide (Lasix) 40 mg SLOW IVP 0600,1400 [facility] Stop: 03/26/18 14:01 Last Admin: 03/26/18 09:11 Dose: 40 mg Glucagon (Glucagon) 1 mg SC PRN PRN PRN Reason: PER HYPOGLYCEMIC PROTOCOL Guaifenesin/Dextromethorphan (Robitussin Dm) 15 ml PO Q4H PRN PRN Reason: Cough Hydralazine HCl (Apresoline) 10 mg SLOW IVP Q6H PRN PRN Reason: To Maintain SBP< 140mmHG Dopamine HCl/Dextrose (Dopamine/D5w) 250 mls @ 0 mls/hr IVPB PRN PRN; Protocol ; Titrate PRN Reason: To maintain SBP > 90 mmHG Nicardipine HCl 25 mg/ Sodium (Chloride) 250 mls @ 0 mls/hr IVPB INF PRN; Protocol; Titrate PRN Reason: To Maintain SBP< 140mmHG Nitroglycerin/Dextrose (Nitroglycerin 50 Mg/250 Ml Bot) 250 mls @ 0 mls/hr IVPB PRN PRN; Protocol; Titrate PRN Reason: To Maintain SBP< 140mmHG Sodium Chloride (Normal Saline 0.9%) 1,000 mls @ 75 mls/hr IV .[id number] [facility] Last Admin: 03/26/18 04:22 Dose: Not Given Insulin Human Regular 100 (units/ Sodium Chloride) 101 mls @ 0 mls/hr IVPB INF [facility]; As Directed PRN Reason: Protocol Last Admin: 03/24/18 14:46 Dose: 101 mls Dextrose/Water (D5w) 1,000 mls @ 0 mls/hr IV INF PRN; As Directed PRN Reason: PRN HYPOGLYCEMIC PROTOCOL Insulin Human Regular (Humulin R) 0 units SC Q4H PRN; Protocol PRN Reason: POST OP SLIDING SCALE Last Admin: 03/26/18 11:10 Dose: 8 unit Lisinopril (Zestril) 5 mg PO DAILY [facility] Last Admin: 03/26/18 08:32 Dose: 5 mg Morphine Sulfate (Morphine Sulfate) 2 mg SLOW IVP Q15MIN PRN PRN Reason: Severe Pain (7-10) Last Admin: 03/25/18 03:47 Dose: 2 mg Ondansetron HCl (Zofran) 4 mg IVP Q6H PRN PRN Reason: Nausea/Vomiting Potassium Chloride (Kcl) 20 meq IVPB PRN PRN PRN Reason: K level </= 4.0 Last Admin: 03/26/18 10:23 Dose: 20 meq Prednisone (Prednisone) 20 mg PO QAM-[facility] Stop: 04/01/18 08:01 Promethazine HCl (Phenergan) 6.25 mg IM Q4H PRN PRN Reason: Nausea/Vomiting Rosuvastatin Calcium (Crestor) 20 mg PO HS [facility] Last Admin: 03/25/18 20:40 Dose: 20 mg Sodium Chloride (Flush - Normal Saline) 10 ml IVF Q12HR [facility] Last Admin: 03/26/18 09:18 Dose: 10 ml Sodium Chloride (Flush - Normal Saline) 10 ml IVF PRN PRN PRN Reason: Saline Flush
[2018-03-26] MEDS: ALPRAZolam 0.5 MG TAB PO PRN ×2 (12:55→21:03)
[2018-03-26] MEDS: Rosuvastatin 20 MG TAB PO SCH (20:13)
[2018-03-27] MEDS: HYDROcodone/Acetaminophen 5/325 mg Tablet PO PRN ×5 (02:42→21:19)
[2018-03-27 04:32] LABS: Anion Gap 8 mmol/L (10-20); BUN (Urea Nitrogen) 22 mg/dL (9.8-20.1); Calc. Creatinine Clearance 135 mL/min (70-130); Calcium 8.4 mg/dL (7.8-10.44); Carbon Dioxide 31 mmol/L (23-31); Chloride 103 mmol/L (98-107); Estimated GFR-MDRD Greater than 90; Glucose 191 mg/dL (80-115); Potassium 3.4 mmol/L (3.5-5.1); Sodium 139 mmol/L (136-145)
[2018-03-27 04:47] LABS: Eosinophils 1 % (0-10); Hemoglobin 10.3 g/dL (12.0-16.0); Lymphocytes 34 % (21-51); MDiff Complete? YES; Mean Corpuscular HGB CONC 33.3 g/dL (32.0-36.0); Mean Corpuscular Hemoglobin 33.8 pg (27.0-31.0); Mean Platelet Volume 9.2 fL (7.4-10.4); Metamyelocyte 1 % (0-0); Monocytes 3 % (0-10); Neutrophil 61 % (42-75); PLT Morphology Comment Appears Adequate; Platelet Count 127 thou/uL (130-400); RBC Distribution Width 11.9 % (11.5-14.5); Red Blood Cell (RBC) Count 3.06 mill/uL (4.20-5.40); White Blood Cell (WBC) Count 11.9 thou/uL (4.8-10.8)
[2018-03-27] MEDS: Potassium Chloride 20 MEQ/100 ML PREMIX BAG IVPB PRN (05:06)
[2018-03-27] MEDS: Insulin Regular 300 UNITS/3 ML VIAL SC PRN ×2 (05:07→21:20)
[2018-03-27] MEDS ORDERED: Bisacodyl 10 MG SUPP PR PRN (07:13)
[2018-03-27] MEDS ORDERED: Bisacodyl 5 MG TAB PO PRN (07:13)
[2018-03-27] MEDS ORDERED: Nitroglycerin 0.4 MG TAB (25 Tab Bottle) SL PRN (07:13)
[2018-03-27] MEDS ORDERED: Mag-Al 1200 mg/1200 mg/30 ML UDCUP PO PRN (07:13)
[2018-03-27] MEDS ORDERED: diphenhydrAMINE 25 MG CAP PO PRN (07:13)
[2018-03-27] MEDS ORDERED: Zolpidem Tartrate 5 MG TAB PO PRN (07:13)
[2018-03-27] MEDS ORDERED: Artificial Tears 18 DROP/0.9 ML EA EYE PRN (07:13)
[2018-03-27] MEDS ORDERED: Mineral Oil ENEMA PR PRN (07:13)
[2018-03-27] MEDS ORDERED: Guaifenesin DM 100-10/5 ML UDCUP PO PRN (07:13)
[2018-03-27] MEDS ORDERED: Metolazone 5 MG TAB PO SCH (07:15)
[2018-03-27] MEDS: predniSONE 20 MG TAB PO SCH (07:48)
[2018-03-27] MEDS: Potassium Chloride 20 MEQ TAB PO SCH ×2 (07:49→16:52)
[2018-03-27] MEDS: Aspirin 325 mg Enteric Coated Tablet PO SCH (07:50)
[2018-03-27] MEDS: Cefdinir 300 MG CAP PO SCH ×2 (07:50→20:15)
[2018-03-27] MEDS: Furosemide 40 MG TAB PO SCH ×2 (07:50→14:48)
[2018-03-27] MEDS: Famotidine 20 MG TAB PO SCH ×2 (07:50→20:15)
[2018-03-27] MEDS: Lisinopril 5 MG TAB PO SCH (07:51)
--- NOTE | 2018-03-27 08:18 | RAD ---
UPRIGHT PORTABLE CHEST 1 VIEW: HISTORY: A 62-year-old female with a history of postop open heart. COMPARISON: 03/26/18. FINDINGS: Marked rotation to the right. Bilateral vascular congestion and bilateral pleural effusions as well as patchy parenchymal changes in the mid and lower lung zones, evidence for subsegmental atelectasis and postoperative change. No significant pneumothorax. IMPRESSION: Removal of the right chest tube. Bilateral vascular congestion and patchy bilateral interstitial and alveolar parenchymal changes and bilateral pleural effusion changes. Continue short-term followup. POS: DANGELO
--- NOTE | 2018-03-27 08:34 | PRG ---
DATE OF SERVICE: 03/27/2018 This morning awake, alert and responsive, less short of breath. PHYSICAL EXAMINATION: VITAL SIGNS: Blood pressure 120/56, sats 91, pulse 107, respirations 18. CHEST: No wheezing. CARDIAC: Normal S1-S2. No gallops. ABDOMEN: No masses. LABORATORY: Electrolytes are normal. White count 11,000. IMPRESSION: 1. Status post coronary artery bypass graft. 2. Tobacco abuse. 3. Chronic obstructive pulmonary disease. 4. Bronchitis. PLAN: She can be transferred out of the ICU. Continue aggressive neb treatments and PT. She is to refrain from smoking. X-ray unfortunately shows bilateral infiltrates today. Could be volume overlo aded. Nothing to suspect congestive heart failure at this time. I will follow.
[2018-03-27] MEDS ORDERED: Furosemide 20 MG TAB PO SCH (09:00)
--- NOTE | 2018-03-27 10:56 | PDOC.CTH ---
Cardiology Progress Note - Subjective The pt seen and examined. No overnight events. No cardiac complaints. She has been up to chair this AM and ready for cardiac rehab. - Objective Vital Signs Temp Pulse Resp BP Pulse Ox 03/27/18 08:00 98.0 F 91 24 H 94 L 03/27/18 07:51 91 123/56 L 03/27/18 07:00 98.0 F 03/27/18 06:21 95 03/27/18 06:19 91 15 94 L 03/27/18 04:00 98.7 F 03/27/18 00:24 93 20 96 03/27/18 00:00 98.6 F Weight 183 lb 13.848 oz 03/26/18 03/27/18 03/28/18 06:59 06:59 06:59 Intake Total 1810 1540 370 Output Total 1480 2520 200 Balance 330 -980 170 - Physical Examination General/Neuro: alert & oriented x3 Neck: no JVD present Lungs: other: (wheezing and ronch ) Heart: RRR Abdomen: soft Extremities: other: (No edema) - Telemetry Telemetry Rhythm: SR 90-100s - Labs Result Diagrams: 03/27/18 04:01 03/27/18 04:01 Troponin/CKMB CK-MB (CK-2) 1.2 ng/mL (0-6.6) 03/17/18 17:23 Troponin I Less than 0.010 ng/mL (< 0.028) 03/18/18 01:16 - Assessment/Plan 1. CAD with s/p CABG x4 with GOETZ-LAD, RGSV-PDA, and RGSV-1st Diag and OM1 - stable; On MAIN, ASA, and Statin. BBlocker was d/louie due to COPD. Holding Lovenox due to low Platelet count. 2. HTN - stable with current medicaiton; cont. to monitor 3. DM type 2 - On ACHS glucose check with Insulin SS. Managed by CV surgeon 4. COPD - On NC; 5. Hx of UTI - resolved; managed by PCP 6. Current smoker - smoking cessation education given to family today. MAR reviewed Review of Systems - Review of Systems Constitutional: reports: no symptoms reported Respiratory: reports: no symptoms reported Cardiac (ROS): reports: no symptoms reported ABD/GI: reports: no symptoms reported : reports: no symptoms reported Musculoskeletal: reports: no symptoms reported
[2018-03-27] MEDS ORDERED: Nystatin Powder 15 GM BOT TOP SCH (11:30)
--- NOTE | 2018-03-27 12:56 | PDOC.PN ---
- Subjective Encounter Start Date: 03/27/18 Encounter Start Time: 12:54 Subjective: feels tired but no new complaints -: no chest pain/SOB - Objective MAR Reviewed: Yes Vital Signs & Weight: Vital Signs (12 hours) Temp Pulse Pulse Pulse Resp BP BP 03/27/18 11:15 98.2 F 79 18 03/27/18 08:36 109 H 108 H 114/53 L 03/27/18 08:00 98.0 F 91 24 H 03/27/18 07:51 91 123/56 L 03/27/18 07:00 98.0 F 03/27/18 06:21 03/27/18 06:19 91 15 03/27/18 04:00 98.7 F BP Pulse Ox Pulse Ox Pulse Ox 03/27/18 11:15 137/61 93 L 03/27/18 08:36 95 96 03/27/18 08:00 94 L 03/27/18 07:51 03/27/18 07:00 03/27/18 06:21 95 03/27/18 06:19 94 L 03/27/18 04:00 Weight Weight 183 lb 13.848 oz Most Recent Monitor Data Heart Rate from ECG 109 NIBP 114/53 NIBP BP-Mean 77 Respiration from ECG 16 SpO2 95 I&O: 03/26/18 03/27/18 03/28/18 06:59 06:59 06:59 Intake Total 1810 1540 370 Output Total 1480 2520 200 Balance 330 -980 170 Result Diagrams: 03/28/18 04:39 03/28/18 04:39 Additional Labs: Accuchecks 03/26/18 03/26/18 20:14 16:12 POC Glucose 185 H 149 H Microbiology 03/17/18 17:40 Urine voided Urine Culture - Final Escherichia coli Laboratory Tests 03/25/18 03/26/18 03/27/18 04:51 04:46 04:01 Plt Count 136 124 L 127 L labs reviewed Phys Exam - Physical Examination Constitutional: NAD weak looking HEENT: PERRLA, moist MMs, sclera anicteric, oral pharynx no lesions Neck: no nodes, no JVD, supple, full ROM Respiratory: no wheezing, no rales, no rhonchi, clear to auscultation bilateral Cardiovascular: RRR, no significant murmur surgical scar well healing Gastrointestinal: soft, non-tender, no distention, positive bowel sounds Musculoskeletal: no edema, pulses present Neurological: non-focal, normal sensation, moves all 4 limbs Psychiatric: normal affect, A&O x 3 Skin: no rash Deviation from normal: perineal candidiasis Dx/Plan (1) Unstable angina Status: Acute (2) Chest pain Code(s): R07.9 - CHEST PAIN, UNSPECIFIED Status: Resolved Qualifiers: Chest pain type: chest pain due to myocardial ischemia Comment: s/p CABGX4 03/24/18.On ASA,MAIN-I,statin.No BB due to severe COPD (3) UTI (urinary tract infection) Status: Acute Qualifiers: Urinary tract infection type: acute cystitis Hematuria presence: without hematuria Qualified Code(s): N30.00 - Acute cystitis without hematuria Comment: resolving, (4) Thrombocytopenia Code(s): D69.6 - THROMBOCYTOPENIA, UNSPECIFIED Status: Acute (5) CAD (coronary artery disease) Code(s): I25.10 - ATHSCL HEART DISEASE OF [place] CORONARY ARTERY W/O ANG PCTRS Status: Acute Qualifiers: Coronary Disease-Associated Artery/Lesion type: habematolel artery [place] vs. transplanted heart: habematolel heart Comment: multivessel disease, cabg on Friday (6) COPD (chronic obstructive pulmonary disease) Status: Chronic Qualifiers: COPD type: chronic bronchitis Chronic bronchitis type: unspecified Qualified Code(s): J42 - Unspecified chronic bronchitis Comment: on ABx and steroids -changed to Po (7) DM type 2 (diabetes mellitus, type 2) Status: Chronic Qualifiers: Diabetes mellitus manager intermediate insulin use: without manager intermediate use Diabetes mellitus complication status: with hyperglycemia Qualified Code(s): E11.65 - Type 2 diabetes mellitus with hyperglycemia (8) HTN (hypertension) Code(s): I10 - ESSENTIAL (PRIMARY) HYPERTENSION Status: Chronic Qualifiers: Hypertension type: essential hypertension Qualified Code(s): I10 - Essential (primary) hypertension (9) Obesity (BMI 30.0-34.9) Code(s): E66.9 - OBESITY, UNSPECIFIED Status: Chronic (10) Tobacco abuse Code(s): Z72.0 - TOBACCO USE Status: Chronic (11) Leucocytosis Code(s): D72.829 - ELEVATED WHITE BLOOD CELL COUNT, UNSPECIFIED Status: Acute Comment: likley reactive post op.monitor (12) Candidiasis of perineum Code(s): B37.49 - OTHER UROGENITAL CANDIDIASIS Status: Acute - Plan lilly catheter, continue antibiotics, PT/OT, out of bed/ambulate, DVT proph w/ SCDs cont cardio-prudent meds.BB stopped d/t COPD.on ASA,statin,MAIN-I. -: cont ABx. -: post-op care for CABG.CTVS,cardiology also following -: cont Po steroids. -: HD stable.franky Home in next 24-48 hours.am labs * . Review of Systems - Review of Systems Constitutional: weakness, malaise. negative: fever, chills, sweats, other ENT: negative: Ear Pain, Ear Discharge, Nose Pain, Nose Discharge, Nose Congestion, Mouth Pain, Mouth Swelling, Throat Pain, Throat Swelling, Other Respiratory: negative: Cough, Dry, Shortness of Breath, Hemoptysis, SOB with Excertion, Pleuritic Pain, Sputum, Wheezing Cardiovascular: negative: chest pain, palpitations, orthopnea, paroxysmal nocturnal dyspnea, edema, light headedness, other Gastrointestinal: negative: Nausea, Vomiting, Abdominal Pain, Diarrhea, Constipation, Melena, Hematochezia, Other Genitourinary: negative: Dysuria, Frequency, Incontinence, Hematuria, Retention , Other Musculoskeletal: negative: Neck Pain, Shoulder Pain, Arm Pain, Back Pain, Hand Pain, Leg Pain, Foot Pain, Other Skin: Rash. negative: Lesions, [place], Bruising, Other - Medications/Allergies Allergies/Adverse Reactions: Allergies Allergy/AdvReac Type Severity Reaction Status Date / Time No Known Drug Allergies Allergy Verified 03/18/18 01:00 Medications: Current Medications Hydrocodone Bitart/Acetaminophen (Jolon 5/325) 1 tab PO Q4H PRN PRN Reason: Moderate Pain (4-6) Hydrocodone Bitart/Acetaminophen (Jolon 5/325) 2 tab PO Q4H PRN PRN Reason: Severe Pain (7-10) Last Admin: 03/27/18 11:10 Dose: 2 tab Al Hydroxide/Mg Hydroxide (Maalox) 30 ml PO Q4H PRN PRN Reason: Indigestion Albuterol/Ipratropium (Duoneb) 3 ml NEB [id number] MARIFER Last Admin: 03/27/18 06:19 Dose: 3 ml Alprazolam (Xanax) 0.5 mg PO Q4H PRN PRN Reason: Anxiety Last Admin: 03/26/18 21:03 Dose: 0.5 mg Artificial Tears (Tears Naturale) 0 drop EA EYE PRN PRN PRN Reason: Dry Eyes Aspirin (Ecotrin) 325 mg PO DAILY [facility] Last Admin: 03/27/18 07:50 Dose: 325 mg Bisacodyl (Dulcolax) 10 mg PO Q12H PRN PRN Reason: Constipation Bisacodyl (Dulcolax) 10 mg HI Q12H PRN PRN Reason: Constipation Budesonide (Pulmicort Neb Solution) 0.5 mg INH BID-RT [facility] Cefdinir (Omnicef) 300 mg PO BID [facility] Stop: 03/31/18 09:01 Last Admin: 03/27/18 07:50 Dose: 300 mg Dextrose/Water (Dextrose 50%) 25 gm SLOW IVP PRN PRN PRN Reason: PER HYPOGLYCEMIC PROTOCOL Diltiazem HCl (Cardizem Cd) 120 mg PO DAILY [facility] Last Admin: 03/27/18 07:51 Dose: 120 mg Diphenhydramine HCl (Benadryl) 25 mg PO Q6H PRN PRN Reason: Itching & Insomnia or Ethan Feliciano Famotidine (Pepcid) 20 mg PO BID [facility] Last Admin: 03/27/18 07:50 Dose: 20 mg Furosemide (Lasix) 40 mg PO 0900,1400 [facility] Stop: 03/29/18 14:01 Last Admin: 03/27/18 07:50 Dose: 40 mg Glucagon (Glucagon) 1 mg SC PRN PRN PRN Reason: PER HYPOGLYCEMIC PROTOCOL Guaifenesin/Dextromethorphan (Robitussin Dm) 15 ml PO Q4H PRN PRN Reason: Cough Last Admin: 03/27/18 11:10 Dose: 15 ml Nitroglycerin/Dextrose (Nitroglycerin 50 Mg/250 Ml Bot) 250 mls @ 0 mls/hr IVPB PRN PRN; Protocol; Titrate PRN Reason: To Maintain SBP< 140mmHG Dextrose/Water (D5w) 1,000 mls @ 0 mls/hr IV INF PRN; As Directed PRN Reason: PRN HYPOGLYCEMIC PROTOCOL Insulin Human Regular (Humulin R) 0 units SC Q4H PRN; Protocol PRN Reason: POST OP SLIDING SCALE Last Admin: 03/27/18 05:07 Dose: 4 unit Lisinopril (Zestril) 5 mg PO DAILY [facility] Last Admin: 03/27/18 07:51 Dose: 5 mg Mineral Oil (Fleet Mineral Oil) 133 ml HI DAILYPRN PRN PRN Reason: Constipation Nitroglycerin (Nitrostat) 0.4 mg SL Q5MIN PRN PRN Reason: Chest Pain Nystatin (Mycostatin Powder) 0 gm TOP BID MARIFER Nystatin (Mycostatin Powder) 0 gm TOP NOW [facility] Stop: 03/27/18 13:30 Last Admin: 03/27/18 12:42 Dose: 1 applic Ondansetron HCl (Zofran) 4 mg IVP Q6H PRN PRN Reason: Nausea/Vomiting Potassium Chloride (K-Dur) 40 meq PO BID-[facility] Stop: 03/29/18 17:01 Last Admin: 03/27/18 07:49 Dose: 40 meq Prednisone (Prednisone) 20 mg PO QAM-[facility] Stop: 04/01/18 08:01 Last Admin: 03/27/18 07:48 Dose: 20 mg Rosuvastatin Calcium (Crestor) 20 mg PO HS [facility] Last Admin: 03/26/18 20:13 Dose: 20 mg Sodium Chloride (Flush - Normal Saline) 10 ml IVF Q12HR [facility] Last Admin: 03/27/18 07:39 Dose: 10 ml Sodium Chloride (Flush - Normal Saline) 10 ml IVF PRN PRN PRN Reason: Saline Flush Zolpidem Tartrate (Ambien) 5 mg PO HSPRN PRN PRN Reason: Insomnia
[2018-03-27] MEDS: Budesonide 0.5 MG/2 ML NEB INH SCH (18:52)
[2018-03-27] MEDS: Rosuvastatin 20 MG TAB PO SCH (20:15)
[2018-03-27] MEDS: Nystatin Powder 15 GM BOT TOP SCH (20:15)
[2018-03-27] MEDS: ALPRAZolam 0.5 MG TAB PO PRN (21:18)
[2018-03-28] MEDS: HYDROcodone/Acetaminophen 5/325 mg Tablet PO PRN ×3 (02:27→13:11)
[2018-03-28 04:58] LABS: #Basophils 0.1 thou/uL (0.0-0.2); #Eosinphils 0.3 thou/uL (0.0-0.7); #Lymphocytes 3.4 thou/uL (1.20-3.40); #Monocytes 0.9 thou/uL (0.11-0.59); #Neutrophils 8.1 thou/uL (1.40-6.50); %Basophils 0.4 % (0.0-1.0); %Eosinophils 2.6 % (0.0-10.0); %Lymphocytes 26.9 % (21.0-51.0); %Monocytes 6.7 % (0.0-10.0); %Neutrophils 63.4 % (42.0-75.0); Hemoglobin 11.1 g/dL (12.0-16.0); Mean Corpuscular HGB CONC 33.7 g/dL (32.0-36.0); Mean Corpuscular Hemoglobin 33.8 pg (27.0-31.0); Mean Platelet Volume 8.3 fL (7.4-10.4); Platelet Count 164 thou/uL (130-400); RBC Distribution Width 11.8 % (11.5-14.5); Red Blood Cell (RBC) Count 3.29 mill/uL (4.20-5.40); White Blood Cell (WBC) Count 12.8 thou/uL (4.8-10.8)
[2018-03-28 05:10] LABS: Anion Gap 15 mmol/L (10-20); BUN (Urea Nitrogen) 14 mg/dL (9.8-20.1); Calc. Creatinine Clearance 123 mL/min (70-130); Calcium 8.9 mg/dL (7.8-10.44); Carbon Dioxide 29 mmol/L (23-31); Chloride 96 mmol/L (98-107); Estimated GFR-MDRD 90; Glucose 288 mg/dL (80-115); Potassium 3.8 mmol/L (3.5-5.1); Sodium 136 mmol/L (136-145)
[2018-03-28] MEDS: Budesonide 0.5 MG/2 ML NEB INH SCH (06:53)
[2018-03-28] MEDS ORDERED: metFORMIN 500 MG TAB PO SCH (09:00)
[2018-03-28] MEDS: Famotidine 20 MG TAB PO SCH (09:01)
[2018-03-28] MEDS: Cefdinir 300 MG CAP PO SCH (09:01)
[2018-03-28] MEDS: Furosemide 40 MG TAB PO SCH (09:01)
[2018-03-28] MEDS: Lisinopril 5 MG TAB PO SCH (09:01)
[2018-03-28] MEDS: Potassium Chloride 20 MEQ TAB PO SCH (09:02)
[2018-03-28] MEDS: predniSONE 20 MG TAB PO SCH (09:03)
[2018-03-28] MEDS: Nystatin Powder 15 GM BOT TOP SCH (09:03)
[2018-03-28] MEDS: Aspirin 325 mg Enteric Coated Tablet PO SCH (09:03)
[2018-03-28] MEDS: Insulin Regular 300 UNITS/3 ML VIAL SC PRN (09:09)
--- NOTE | 2018-03-28 15:33 | DIS ---
DATE OF ADMISSION: 03/18/2018 DATE OF DISCHARGE: 03/28/2018 CONDITION AT THE TIME OF DISCHARGE: Stable and improved. This patient was discharged by consulting Cardiovascular surgeon. I was not notified of the discharg e. PRIMARY CARE PHYSICIAN: Dr. Imani Abbott. DISCHARGE DISPOSITION: Home with home health. DISCHARGE FOLLOWUP: 1. Primary care physician on 04/02/2018 at 1:15 p.m. 2. Cardiology, Dr. Diego Gonzalez. 3. Cardiovascular Surgery, Dr. Vela. DISCHARGE DIAGNOSES: 1. Chest pain and unstable angina secondary to underlying coronary artery disease, status post coron blessing artery bypass graft x4 during this hospitalization. 2. Hypertension. 3. Diabetes mellitus type 2. 4. Chronic obstructive pulmonary disease. 5. Urinary tract infection. 6. Tobacco abuse. DISCHARGE MEDICATIONS: Trazodone 100 mg daily, metformin XR 750 mg p.o. b.i.d., Crestor 20 mg daily, lisinopril 10 mg daily, Cymbalta 100 mg daily, diltiazem CD 120 mg daily, Omnicef 300 mg p.o. b.i.d. for 5 days, aspirin 325 mg daily. INHOUSE CONSULTATIONS: 1. Pulmonary Critical Care. 2. Cardiology, Dr. Gonzalez. 3. Cardiovascular Surgery. PROCEDURES DONE IN THE HOSPITAL: 1. CT angio of the thorax upon presentation, which is negative for any evidence of pulmonary embolis m. 2. Upper extremity ultrasound of the left upper arm, which shows monophasic flow throughout the arm. 3. Nuclear medicine stress test, which shows inferolateral wall of the mid portion of the apex of th e left ventricle with small volume aria-infarct ischemia and scar in the inferior lateral wall of the left ventricle with EF of 70%. 4. Transthoracic echocardiogram which shows EF of 60%-65% with restrictive filling pattern. 5. Cardiac catheterization which showed EF of 60%-65% and blockages in the coronary artery and the l eft main and right coronary artery, left anterior descending and diagonal arteries. 6. Coronary artery bypass graft x4 on 03/24/2018. HISTORY OF PRESENT ILLNESS: Ms. Whitfeild is a 62-year-old female who is a lifelong smoker with history of diabetes, hypertension, dyslipidemia, and COPD, who presented to the emergency room with the comp laints of intermittent chest discomfort associated with shortness of breath. She was found to have t achycardia in the emergency room and her urinalysis was consistent with a UTI. She underwent a CT an bere in the ER, which was negative for any pulmonary embolism. Left upper arterial Doppler was also d one given the patient's presenting complaint of difficulty getting a blood pressure in the left arm. This was negative for any arterial occlusions. She was hemodynamically stable upon presentation. C ardiac enzymes are negative at the time of admission. She was admitted to rule out acute coronary sy ndrome. Her blood pressure was on the marginal side, so she was started on IV fluids and stress test was ordered. Please see admission history and physical for further detail. She was also started on empiric IV antibiotics and urine cultures were sent. HOSPITAL COURSE: The patient's stress test was abnormal, so Cardiology was consulted. She underwent an echocardiogram and cardiac catheterization with results mentioned above. Because of significant disease in the cardiac catheterization, she was referred to Cardiovascular Surgery and underwent a hutchinson ccessful coronary artery bypass graft x4 as above by Dr. Vela. Postoperative course was unre markable. She was started on appropriate cardiac prudent medications as above and as of this morning , she was back to her baseline and eating and drinking well and walking around with the cardiac rehab without any complaints. She was discharged by Cardiothoracic Surgery earlier this morning. LABORATORY EXAMINATION: Her urine culture showed E. coli which was pansensitive. IV antibiotics wer e changed to oral antibiotics as per the Pulmonary Medicine and she was discharged on same. She was seen and examined prior to discharge. PHYSICAL EXAMINATION: This morning, VITAL SIGNS: Temperature 98.1, pulse of 87, saturating 92% on 2 liters nasal cannula, blood pressure 164/74. GENERAL: No acute distress. Awake, alert, oriented x3. is at bedside. Care was discussed. CHEST: Clear to auscultation without any wheezing, rales or rhonchi. Rhythm is regular without any murmur, rubs or gallops. Her surgical scar is well healing. ABDOMEN: Soft, nontender, nondistended. EXTREMITIES: Free of any cyanosis, clubbing, or edema. Home health orders were placed for this patient as per the family's request, but I am not sure if the se were finished as the patient was discharged prior to my knowledge by the consulting physician. We will follow up with the upper caser to fulfill the request for home health for this patient. Total time spent 35 minutes.
[2018-03-28 18:40] VITALS: BP 95/64; TEMP 97.7
[2018-03-29] MEDS ORDERED: glyBURIDE 5 MG TAB PO SCH (08:00)
== END 2018-03-28 13:32 | disposition home or self-care (01) | DRG 234 ==
LOC: ERS 15:46 → 2SW 03-18 00:23 → OBSVTOIN 03-20 09:40 → 2NO 03-20 12:52 → CCU 03-24 08:00 → 2NO 03-27 09:13
PROVIDERS: ADMIT Internal Medicine; ATTEND Internal Medicine
PROC: 4A023N7 Measurement of Cardiac Sampling and Pressure, Left Heart, Percutaneous Approach (ICD-10-PCS; 2018-03-20)
PROC: B2111ZZ Fluoroscopy of Multiple Coronary Arteries using Low Osmolar Contrast (ICD-10-PCS; 2018-03-20)
PROC: 021209W Bypass Coronary Artery, Three Arteries from Aorta with Autologous Venous Tissue, Open Approach (ICD-10-PCS; principal; 2018-03-24)
PROC: 06BQ4ZZ Excision of Left Saphenous Vein, Percutaneous Endoscopic Approach (ICD-10-PCS; 2018-03-24)
PROC: 02100AW Bypass Coronary Artery, One Artery from Aorta with Autologous Arterial Tissue, Open Approach (ICD-10-PCS; 2018-03-24)
PROC: 5A1935Z Respiratory Ventilation, Less than 24 Consecutive Hours (ICD-10-PCS; 2018-03-24)
DX: I25.110 Atherosclerotic heart disease of native coronary artery with unstable angina pectoris (principal); E87.1 Hypo-osmolality and hyponatremia; J44.1 Chronic obstructive pulmonary disease with (acute) exacerbation; N30.00 Acute cystitis without hematuria; B37.49 Other urogenital candidiasis; B96.20 Unspecified Escherichia coli [E. coli] as the cause of diseases classified elsewhere; I70.8 Atherosclerosis of other arteries; E11.65 Type 2 diabetes mellitus with hyperglycemia; E11.51 Type 2 diabetes mellitus with diabetic peripheral angiopathy without gangrene; I10 Essential (primary) hypertension; E78.00 Pure hypercholesterolemia, unspecified; F17.210 Nicotine dependence, cigarettes, uncomplicated; D69.6 Thrombocytopenia, unspecified; E66.9 Obesity, unspecified; F41.8 Other specified anxiety disorders; R00.8 Other abnormalities of heart beat; Z79.84 Long term (current) use of oral hypoglycemic drugs; Z68.35 Body mass index [BMI] 35.0-35.9, adult
CPT/HCPCS: 36415; 36416; 36430; 71045; 71275; 78452; 80048; 80053; 80061; 81003; 81015; 82553; 82805; 83036; 83735; 83880; 84484; 85025; 85610; 85730; 86850; 86900; 86901; 87077; 87086; 87186; 93005; 93010; 93017; 93306; 93458; 93798; 93923; 94002; 94003; 94150; 94640; 94664; 94760; 96361; 96374; A4216; A9500; C1769; J0696; J1642; J1644; J1815; J1885; J1940; J2001; J2060; J2150; J2250; J2270; J2440; J2704; J2720; J2785; J2920; J3010; J3475; J3480; J7050; J7506; J7620; J7626; P9045; S0028

== ENCOUNTER → 2024-11-05 | Day surgery (SDC) | payer OTHER | LOC: BICULT 12:33 | PROVIDERS: ATTEND Physician Assistant | PROC: 0HBU3ZX Excision of Left Breast, Percutaneous Approach, Diagnostic (ICD-10-PCS; principal; 2024-11-05) | DX: C50.512 Malignant neoplasm of lower-outer quadrant of left female breast (principal) | CPT/HCPCS: 19083; 88305 ==

== ENCOUNTER 2025-07-27 13:07 | Outpatient (CLI) | payer OTHER ==
[~2025-07-27 13:07] MED LIST changes: -ISOVUE-370 76%-LOCM 1 ML ONE; +Iopamidol 370 76% 100 ML VIAL ONE
[2025-07-27 13:46] LABS: Estimated GFR - POC 54.0
== END 2025-07-27 13:08 | disposition home or self-care (01) ==
LOC: CT 13:07
PROVIDERS: ATTEND Internal Medicine
DX: C50.812 Malignant neoplasm of overlapping sites of left female breast (principal); K74.60 Unspecified cirrhosis of liver; I70.90 Unspecified atherosclerosis; N63.20 Unspecified lump in the left breast, unspecified quadrant; R91.8 Other nonspecific abnormal finding of lung field; J98.11 Atelectasis; J98.4 Other disorders of lung; I25.10 Atherosclerotic heart disease of native coronary artery without angina pectoris; K75.3 Granulomatous hepatitis, not elsewhere classified; Q44.5 Other congenital malformations of bile ducts; E27.8 Other specified disorders of adrenal gland; N26.1 Atrophy of kidney (terminal); I70.8 Atherosclerosis of other arteries; I71.43 Infrarenal abdominal aortic aneurysm, without rupture; K57.30 Diverticulosis of large intestine without perforation or abscess without bleeding; K42.9 Umbilical hernia without obstruction or gangrene; M85.80 Other specified disorders of bone density and structure, unspecified site; M47.819 Spondylosis without myelopathy or radiculopathy, site unspecified; Z90.710 Acquired absence of both cervix and uterus; Z98.890 Other specified postprocedural states
CPT/HCPCS: 36415; 71260; 74177; 82565; Q9967